=== PATIENT | male | born 1965 | race African-American/Black ===

== ENCOUNTER 2020-03-15 14:17 | Inpatient (IN) | payer OTHER ==
[2020-03-15 14:24] VITALS: BMI 30.7
[2020-03-15] MEDS ORDERED: LACTATED RINGERS SOLUTION 1000 ML INFUS.BAG IV ONE (15:16)
[2020-03-15 15:47] LABS: BASO % 1.4 % (0-2.0); EOS % 1.9 % (0-4.5); HEMOGLOBIN 14.5 GM/dL (11.7-16.9); MCH 29.8 pg (25.7-33.7); MCHC 33.8 g/dl (32.0-35.9); MEAN CELL VOLUME 88.4 fl (80-96); MEAN PLT VOLUME 8.3 fl (7.5-11.1); NEUT % 50.7 % (42.8-82.8); PLATELET COUNT 234 K/MM3 (134-434); RBC 4.86 M/mm3 (4.00-5.60); RDW 13.8 % (11.9-15.9); WHITE BLOOD COUNT 7.4 K/mm3 (4.0-10.0)
[2020-03-15 16:28] LABS: CHLORIDE 109 mmol/L (98-107); POTASSIUM 4.4 mmol/L (3.5-5.1); SODIUM 142 mmol/L (136-145)
[2020-03-15 16:30] LABS: ALBUMIN 3.7 g/dl (3.4-5.0); ANION GAP 5 MMOL/L (8-16); BLOOD UREA NITROGEN 17.6 mg/dL (7-18); CALCIUM 9.2 mg/dL (8.5-10.1); CO2 28 mmol/L (21-32); MAGNESIUM 2.4 mg/dL (1.8-2.4)
[2020-03-15 16:31] LABS: GLUCOSE,RANDOM 233 mg/dL (74-106)
[2020-03-15 16:33] LABS: SGPT/ALT 22 U/L (13-61)
[2020-03-15 16:34] LABS: CREATININE 1.3 mg/dL (0.55-1.3); SGOT/AST 13 U/L (15-37)
[2020-03-15 16:35] LABS: BILIRUBIN,TOTAL 0.4 mg/dL (0.2-1); TOT PROT 7.2 g/dl (6.4-8.2)
[2020-03-15 16:36] LABS: ALK PHOS 73 U/L (45-117)
[2020-03-15 19:09] LABS: EPI CELLS 4 /uL (0-25.1); HYALINE CASTS 1 /uL (0-3.1); URINE APPEARANCE CLEAR; URINE BACTERIA 77 /uL (0-1359); URINE BILIRUBIN NEGATIVE (NEGATIVE); URINE COLOR YELLOW; URINE GLUCOSE (UA) 3+ (NEGATIVE); URINE KETONE TRACE (NEGATIVE); URINE LEUK ESTERASE NEGATIVE (NEGATIVE); URINE NITRITE NEGATIVE (NEGATIVE); URINE PROTEIN 2+ (NEGATIVE); URINE RBC 4 /uL (0-23.9); URINE WBC 6 /uL (0-25.8)
[2020-03-16 07:04] LABS: BASO % 0.4 % (0-2.0); EOS % 2.2 % (0-4.5); HEMATOCRIT 39.1 % (35.4-49); HEMOGLOBIN 13.4 GM/dL (11.7-16.9); LYMPH % 47.8 % (8-40); MCH 29.6 pg (25.7-33.7); MCHC 34.3 g/dl (32.0-35.9); MEAN CELL VOLUME 86.2 fl (80-96); MEAN PLT VOLUME 8.7 fl (7.5-11.1); MONO % 6.1 % (3.8-10.2); NEUT % 43.5 % (42.8-82.8); PLATELET COUNT 229 K/MM3 (134-434); RBC 4.53 M/mm3 (4.00-5.60); RDW 13.7 % (11.9-15.9); WHITE BLOOD COUNT 6.9 K/mm3 (4.0-10.0)
[2020-03-16] MEDS: INSULIN SLIDING SCALE (NOVOLOG) 1 VIAL SQ SCH ×5 (07:31→21:23)
[2020-03-16 07:43] LABS: POTASSIUM 3.9 mmol/L (3.5-5.1); SODIUM 143 mmol/L (136-145)
[2020-03-16 07:44] LABS: CALCIUM 8.8 mg/dL (8.5-10.1); CO2 28 mmol/L (21-32)
[2020-03-16 07:45] LABS: ALBUMIN 3.3 g/dl (3.4-5.0); MAGNESIUM 2.2 mg/dL (1.8-2.4)
[2020-03-16 07:46] LABS: BLOOD UREA NITROGEN 16.1 mg/dL (7-18); GLUCOSE,RANDOM 107 mg/dL (74-106)
[2020-03-16 07:49] LABS: SGOT/AST 12 U/L (15-37); SGPT/ALT 18 U/L (13-61)
[2020-03-16 07:50] LABS: BILIRUBIN,TOTAL 0.8 mg/dL (0.2-1); TOT PROT 6.5 g/dl (6.4-8.2)
[2020-03-16 07:52] LABS: ALK PHOS 59 U/L (45-117)
[2020-03-16 07:55] LABS: ANION GAP 4 MMOL/L (8-16); CHLORIDE 111 mmol/L (98-107)
[2020-03-16] MEDS ORDERED: TAMSULOSIN HCL 0.4 MG CAP PO SCH (08:30)
[2020-03-16] MEDS ORDERED: TAMSULOSIN HCL 0.4 MG CAP ONE (08:56)
[2020-03-16] MEDS ORDERED: PANTOPRAZOLE SODIUM 40 MG VIAL IVPUSH SCH (10:00)
[2020-03-16] MEDS ORDERED: LORATADINE 10 MG TABLET PO SCH (13:30)
[2020-03-16] MEDS ORDERED: PANTOPRAZOLE 40 MG TABLET PO SCH (13:45)
[2020-03-16 15:04] LABS: CHOLESTEROL 157 mg/dL (50-200)
[2020-03-16 15:05] LABS: LDL CHOLESTEROL (ONLY SJRH) 99 mg/dL (5-100); TRIGLYCERIDES 57 mg/dL (0-150)
[2020-03-16 15:07] LABS: HDL CHOLESTEROL 51 mg/dL (40-60)
[2020-03-16] MEDS: ASPIRIN 81 MG CHEWABLE TABLETS PO SCH (17:42)
[2020-03-16 18:11] LABS: CHOLESTEROL 154 mg/dL (50-200); TRIGLYCERIDES 92 mg/dL (0-150)
[2020-03-16 18:12] LABS: LDL CHOLESTEROL (ONLY SJRH) 99 mg/dL (5-100)
[2020-03-16 18:14] LABS: HDL CHOLESTEROL 51 mg/dL (40-60)
[2020-03-16] MEDS ORDERED: INSULIN SLIDING SCALE (NOVOLOG) 1 VIAL SQ SCH (22:00)
[2020-03-16] MEDS ORDERED: ATORVASTATIN CA 10 MG TABLET (FP) PO SCH (22:00)
[2020-03-17] MEDS: INSULIN SLIDING SCALE (NOVOLOG) 1 VIAL SQ SCH ×2 (06:20→11:07)
[2020-03-17] MEDS ORDERED: metFORMIN HCL 500 MG TABLET (FP) PO SCH (07:00)
[2020-03-17] MEDS ORDERED: TAMSULOSIN HCL 0.4 MG CAP PO SCH (08:30)
[2020-03-17] MEDS: ASPIRIN 81 MG CHEWABLE TABLETS PO SCH (09:18)
[2020-03-17] MEDS ORDERED: PANTOPRAZOLE 40 MG TABLET PO SCH (10:00)
[2020-03-17] MEDS ORDERED: LORATADINE 10 MG TABLET PO SCH (10:00)
[2020-03-17 15:10] VITALS: BP 137/84; PULSE 74; TEMP 97.9
[2020-03-17] MEDS ORDERED: ATORVASTATIN CA 20 MG TABLET (FP) PO SCH (22:00)
== END 2020-03-17 18:05 | disposition home or self-care (01) | DRG 66 ==
LOC: JER 14:17 → JERBED 19:33 → J6WEST-2 03-16 13:07 → J4S 03-16 16:53 → OBSVTOIN 03-17 07:33
PROVIDERS: ADMIT Internal Medicine; ATTEND Family Medicine
DX: I63.9 Cerebral infarction, unspecified (principal); R27.0 Ataxia, unspecified; N40.0 Benign prostatic hyperplasia without lower urinary tract symptoms; I10 Essential (primary) hypertension; R47.81 Slurred speech; E11.9 Type 2 diabetes mellitus without complications; R26.81 Unsteadiness on feet; G56.03 Carpal tunnel syndrome, bilateral upper limbs; E11.65 Type 2 diabetes mellitus with hyperglycemia
CPT/HCPCS: 36415; 70450-TC; 70551-TC; 71046-TC-FY; 80053; 80061; 80307; 81003; 82550; 82553; 82962; 83036; 83721; 83735; 84484; 85025; 87086; 93005; 93010; 93880-TC; 97116-GP; 97161-GP; 99285-25; C9803; G0378; U0003

== ENCOUNTER 2020-07-17 11:53 | Observation (INO) | payer OTHER ==
[2020-07-17 13:23] VITALS: BMI 29.2
[2020-07-17 15:00] LABS: BASO % 0.8 % (0-2.0); EOS % 1.7 % (0-4.5); HEMATOCRIT 41.7 % (35.4-49); HEMOGLOBIN 14.4 GM/dL (11.7-16.9); LYMPH % 44.8 % (8-40); MCH 29.7 pg (25.7-33.7); MCHC 34.5 g/dl (32.0-35.9); MEAN CELL VOLUME 86.1 fl (80-96); MEAN PLT VOLUME 9.2 fl (7.5-11.1); MONO % 5.9 % (3.8-10.2); NEUT % 46.8 % (42.8-82.8); PLATELET COUNT 225 K/MM3 (134-434); RBC 4.84 M/mm3 (4.00-5.60); RDW 13.8 % (11.9-15.9); WHITE BLOOD COUNT 8.4 K/mm3 (4.0-10.0)
[2020-07-17 15:05] LABS: VENOUS BASE EXCESS 0.6 mmol/L (-2-2); VENOUS O2 SATURATION 50.6 % (70-80); VENOUS PCO2 58.5 mmHg (38-52); VENOUS PH 7.303 (7.310-7.410)
[2020-07-17 15:07] LABS: INR 1.08 (0.83-1.09); PROTHROMBIN TIME (PATIENT) 13.2 SEC (9.7-13.0)
[2020-07-17 15:10] LABS: ACTIVATED PTT 33.9 SECONDS (25.2-36.5)
[2020-07-17 15:25] LABS: CHLORIDE 107 mmol/L (98-107); POTASSIUM 4.3 mmol/L (3.5-5.1); SODIUM 139 mmol/L (136-145)
[2020-07-17 15:27] LABS: CALCIUM 9.1 mg/dL (8.5-10.1)
[2020-07-17 15:28] LABS: ALBUMIN 3.4 g/dl (3.4-5.0); ANION GAP 5 MMOL/L (8-16); BLOOD UREA NITROGEN 13.5 mg/dL (7-18); CO2 27 mmol/L (21-32); GLUCOSE,RANDOM 143 mg/dL (74-106)
[2020-07-17 15:30] LABS: BILIRUBIN,DIRECT 0.1 mg/dL (0.0-0.2)
[2020-07-17 15:31] LABS: CREATININE 1.1 mg/dL (0.55-1.3); SGOT/AST 7 U/L (15-37); SGPT/ALT 13 U/L (13-61)
[2020-07-17 15:32] LABS: BILIRUBIN,TOTAL 0.4 mg/dL (0.2-1)
[2020-07-17 15:34] LABS: ALK PHOS 61 U/L (45-117); LDH 211 U/L (87-246)
[2020-07-17] MEDS ORDERED: TAMSULOSIN HCL 0.4 MG CAP PO ONE (16:49)
[2020-07-17] MEDS ORDERED: ACETAMINOPHEN 325 MG TABLET (FP) PO PRN (16:49)
[2020-07-17] MEDS ORDERED: TAMSULOSIN HCL 0.4 MG CAP ONE (16:52)
[2020-07-17 18:42] LABS: EPI CELLS 3 /uL (0-25.1); HYALINE CASTS 0 /uL (0-3.1); URINE APPEARANCE CLEAR; URINE BACTERIA 100 /uL (0-1359); URINE BILIRUBIN NEGATIVE (NEGATIVE); URINE COLOR YELLOW; URINE GLUCOSE (UA) NEGATIVE (NEGATIVE); URINE KETONE NEGATIVE (NEGATIVE); URINE LEUK ESTERASE NEGATIVE (NEGATIVE); URINE NITRITE NEGATIVE (NEGATIVE); URINE PROTEIN 2+ (NEGATIVE); URINE RBC 11 /uL (0-23.9); URINE WBC 11 /uL (0-25.8)
[2020-07-17 23:17] LABS: ALBUMIN 3.2 g/dl (3.4-5.0); BLOOD UREA NITROGEN 14.5 mg/dL (7-18)
[2020-07-17] MEDS: INSULIN SLIDING SCALE (NOVOLOG) 1 VIAL SQ SCH (23:20)
[2020-07-17 23:21] LABS: CREATININE 1.2 mg/dL (0.55-1.3)
[2020-07-17] MEDS: INSULIN (LEVEMIR) 100 UNITS/ML UNITS SQ SCH (23:21)
[2020-07-17] MEDS: HEPARIN NA (PORCINE) 5,000 UNITS/ML 1ML VIAL SQ SCH (23:21)
[2020-07-17 23:22] LABS: BILIRUBIN,TOTAL 0.4 mg/dL (0.2-1); TOT PROT 6.2 g/dl (6.4-8.2)
[2020-07-17] MEDS: ATORVASTATIN CA 20 MG TABLET (FP) PO SCH (23:22)
[2020-07-18] MEDS: INSULIN SLIDING SCALE (NOVOLOG) 1 VIAL SQ SCH ×4 (06:21→21:25)
[2020-07-18 07:53] LABS: HEMATOCRIT 39.6 % (35.4-49); HEMOGLOBIN 13.6 GM/dL (11.7-16.9); MCH 29.6 pg (25.7-33.7); MCHC 34.4 g/dl (32.0-35.9); MEAN CELL VOLUME 86.1 fl (80-96); MEAN PLT VOLUME 8.7 fl (7.5-11.1); PLATELET COUNT 229 K/MM3 (134-434); RBC 4.61 M/mm3 (4.00-5.60); RDW 13.7 % (11.9-15.9); WHITE BLOOD COUNT 8.3 K/mm3 (4.0-10.0)
[2020-07-18] MEDS: PANTOPRAZOLE 40 MG TABLET PO SCH (09:06)
[2020-07-18] MEDS: ASPIRIN COATED 81 MG TABLET.EC PO SCH (09:07)
[2020-07-18] MEDS: HEPARIN NA (PORCINE) 5,000 UNITS/ML 1ML VIAL SQ SCH ×2 (09:07→21:23)
[2020-07-18] MEDS: INSULIN (LEVEMIR) 100 UNITS/ML UNITS SQ SCH (21:26)
[2020-07-18] MEDS: ATORVASTATIN CA 20 MG TABLET (FP) PO SCH (21:28)
[2020-07-19] MEDS: INSULIN SLIDING SCALE (NOVOLOG) 1 VIAL SQ SCH ×4 (06:00→21:52)
[2020-07-19] MEDS ORDERED: INSULIN (LEVEMIR) 100 UNITS/ML UNITS SQ SCH (08:08)
[2020-07-19] MEDS ORDERED: FOLIC ACID INJECTION - 1 MG, THIAMINE HCL 100 MG, MULTIVIT INJECTION ADULT 10 ML in SOD... IVPB ONE (09:00)
[2020-07-19] MEDS: HEPARIN NA (PORCINE) 5,000 UNITS/ML 1ML VIAL SQ SCH ×2 (10:37→21:52)
[2020-07-19] MEDS: ASPIRIN COATED 81 MG TABLET.EC PO SCH (10:37)
[2020-07-19] MEDS: PANTOPRAZOLE 40 MG TABLET PO SCH (12:22)
[2020-07-19] MEDS ORDERED: INSULIN (LEVEMIR) 100 UNITS/ML UNITS SQ ONE (21:50)
[2020-07-19] MEDS ORDERED: ATORVASTATIN CA 40 MG TABLET (FP) PO SCH (22:00)
[2020-07-20 05:26] VITALS: TEMP 98.2
[2020-07-20] MEDS: INSULIN SLIDING SCALE (NOVOLOG) 1 VIAL SQ SCH ×2 (06:09→10:52)
[2020-07-20 08:43] LABS: CHOLESTEROL 144 mg/dL (50-200); TRIGLYCERIDES 111 mg/dL (0-150)
[2020-07-20 08:45] LABS: LDL CHOLESTEROL (ONLY SJRH) 84 mg/dL (5-100)
[2020-07-20 08:46] LABS: HDL CHOLESTEROL 43 mg/dL (40-60)
[2020-07-20] MEDS: ASPIRIN COATED 81 MG TABLET.EC PO SCH (10:41)
[2020-07-20] MEDS: PANTOPRAZOLE 40 MG TABLET PO SCH (10:41)
[2020-07-20] MEDS: HEPARIN NA (PORCINE) 5,000 UNITS/ML 1ML VIAL SQ SCH (10:41)
[2020-07-20 15:17] VITALS: BP 155/91; PULSE 79
== END 2020-07-20 15:49 | disposition home health service (06) ==
LOC: JER 11:53 → INTOOBSV 17:22 → JERBED 17:22 → J8W 22:17
PROVIDERS: ADMIT Family Medicine; ATTEND Family Medicine
PROC: 3E033GC Introduction of Other Therapeutic Substance into Peripheral Vein, Percutaneous Approach (ICD-10-PCS; principal; 2020-07-17)
PROC: 3E013VG Introduction of Insulin into Subcutaneous Tissue, Percutaneous Approach (ICD-10-PCS; 2020-07-17)
DX: I63.9 Cerebral infarction, unspecified (principal); I10 Essential (primary) hypertension; R27.0 Ataxia, unspecified; F41.8 Other specified anxiety disorders; E11.9 Type 2 diabetes mellitus without complications; F32.9 Major depressive disorder, single episode, unspecified; M54.5 Low back pain; G89.29 Other chronic pain; E78.5 Hyperlipidemia, unspecified; M62.81 Muscle weakness (generalized); R91.8 Other nonspecific abnormal finding of lung field; R06.02 Shortness of breath; R41.82 Altered mental status, unspecified; N40.0 Benign prostatic hyperplasia without lower urinary tract symptoms; Z86.73 Personal history of transient ischemic attack (TIA), and cerebral infarction without residual deficits; Z91.14 Patient's other noncompliance with medication regimen; Z79.4 Long term (current) use of insulin; G95.9 Disease of spinal cord, unspecified
CPT/HCPCS: 36415; 70450-TC; 70551-TC; 71045-TC-FY; 71250-TC; 72141-TC; 80053; 80061; 81003; 82140; 82248; 82550; 82728; 82803; 82962; 83036; 83605; 83615; 83655; 83721; 83825; 84484; 85025; 85027; 85379; 85610; 85730; 86140; 87040; 87086; 87804; 93005; 93010; 93306-TC; 97116-GP; 97161-GP; 99285-25; C9803; G0378; J1644; U0003

== ENCOUNTER 2020-07-23 22:39 | Inpatient (IN) | payer OTHER ==
[2020-07-23] MEDS ORDERED: MECLIZINE HCL 25 MG TABLET (FP) PO ONE (23:57)
[2020-07-24] MEDS ORDERED: MECLIZINE HCL 25 MG TABLET (FP) ONE (00:04)
[2020-07-24 00:27] LABS: BASO % 1.3 % (0-2.0); EOS % 1.8 % (0-4.5); HEMATOCRIT 37.7 % (35.4-49); HEMOGLOBIN 12.9 GM/dL (11.7-16.9); LYMPH % 38.3 % (8-40); MCH 29.7 pg (25.7-33.7); MCHC 34.3 g/dl (32.0-35.9); MEAN CELL VOLUME 86.6 fl (80-96); MEAN PLT VOLUME 8.9 fl (7.5-11.1); MONO % 6.8 % (3.8-10.2); NEUT % 51.8 % (42.8-82.8); PLATELET COUNT 187 K/MM3 (134-434); RBC 4.36 M/mm3 (4.00-5.60); RDW 14.1 % (11.9-15.9); WHITE BLOOD COUNT 8.7 K/mm3 (4.0-10.0)
[2020-07-24 00:50] LABS: POTASSIUM 3.9 mmol/L (3.5-5.1)
[2020-07-24 00:53] LABS: ALBUMIN 3.2 g/dl (3.4-5.0); BLOOD UREA NITROGEN 18.5 mg/dL (7-18); CALCIUM 8.6 mg/dL (8.5-10.1)
[2020-07-24 00:56] LABS: CREATININE 1.2 mg/dL (0.55-1.3)
[2020-07-24 00:58] LABS: BILIRUBIN,TOTAL 0.5 mg/dL (0.2-1); TOT PROT 6.3 g/dl (6.4-8.2)
[2020-07-24] MEDS ORDERED: MECLIZINE HCL 25 MG TABLET (FP) PO PRN (02:58)
[2020-07-24] MEDS: INSULIN SLIDING SCALE (NOVOLOG) 1 VIAL SQ SCH ×4 (06:03→21:00)
[2020-07-24 06:39] VITALS: BMI 33.2
[2020-07-24 07:27] LABS: HEMATOCRIT 37.6 % (35.4-49); HEMOGLOBIN 13.1 GM/dL (11.7-16.9); MCHC 34.9 g/dl (32.0-35.9); MEAN CELL VOLUME 86.1 fl (80-96); MEAN PLT VOLUME 8.4 fl (7.5-11.1); PLATELET COUNT 222 K/MM3 (134-434); RBC 4.37 M/mm3 (4.00-5.60)
[2020-07-24 07:50] LABS: POTASSIUM 3.8 mmol/L (3.5-5.1)
[2020-07-24 07:56] LABS: BLOOD UREA NITROGEN 19.7 mg/dL (7-18)
[2020-07-24 07:59] LABS: CALCIUM 8.7 mg/dL (8.5-10.1); CREATININE 1.2 mg/dL (0.55-1.3)
[2020-07-24] MEDS: CLOPIDOGREL BISULFATE 75 MG TABLET (FP) PO SCH (10:30)
[2020-07-24] MEDS: PANTOPRAZOLE 40 MG TABLET PO SCH (10:30)
[2020-07-24] MEDS: TAMSULOSIN HCL 0.4 MG CAP PO SCH (10:30)
[2020-07-24] MEDS: ASPIRIN 81 MG CHEWABLE TABLETS PO SCH (10:31)
[2020-07-24] MEDS: ATORVASTATIN CA 40 MG TABLET (FP) PO SCH (21:00)
[2020-07-25] MEDS: INSULIN SLIDING SCALE (NOVOLOG) 1 VIAL SQ SCH ×4 (06:15→21:25)
[2020-07-25] MEDS: PANTOPRAZOLE 40 MG TABLET PO SCH (10:13)
[2020-07-25] MEDS: TAMSULOSIN HCL 0.4 MG CAP PO SCH (10:13)
[2020-07-25] MEDS: CLOPIDOGREL BISULFATE 75 MG TABLET (FP) PO SCH (10:13)
[2020-07-25] MEDS: ASPIRIN 81 MG CHEWABLE TABLETS PO SCH (10:13)
[2020-07-25] MEDS: ATORVASTATIN CA 40 MG TABLET (FP) PO SCH (21:25)
[2020-07-25] MEDS ORDERED: INSULIN (NOVOLOG) ASPART 100 UNITS/ML 10ML VIAL ONE (21:29)
[2020-07-26] MEDS: INSULIN SLIDING SCALE (NOVOLOG) 1 VIAL SQ SCH ×2 (06:17→11:33)
[2020-07-26] MEDS: CLOPIDOGREL BISULFATE 75 MG TABLET (FP) PO SCH (09:56)
[2020-07-26] MEDS: ASPIRIN 81 MG CHEWABLE TABLETS PO SCH (09:56)
[2020-07-26] MEDS: PANTOPRAZOLE 40 MG TABLET PO SCH (09:56)
[2020-07-26] MEDS: TAMSULOSIN HCL 0.4 MG CAP PO SCH (09:56)
[2020-07-26 11:04] VITALS: BP 141/85; PULSE 72; TEMP 97.8
== END 2020-07-26 13:50 | DRG 65 ==
LOC: JER 22:39 → JERBED 07-24 02:14 → J4W 07-24 05:50
PROVIDERS: ADMIT Internal Medicine; ATTEND Family Medicine
DX: I63.9 Cerebral infarction, unspecified (principal); G95.89 Other specified diseases of spinal cord; N40.0 Benign prostatic hyperplasia without lower urinary tract symptoms; R42 Dizziness and giddiness; E11.9 Type 2 diabetes mellitus without complications; Z86.73 Personal history of transient ischemic attack (TIA), and cerebral infarction without residual deficits; E78.5 Hyperlipidemia, unspecified; R47.81 Slurred speech; Z79.4 Long term (current) use of insulin
CPT/HCPCS: 36415; 70450-TC; 70544-TC; 70551-TC; 74230-TC-FY; 80048; 80053; 82962; 83036; 84443; 85025; 85027; 92611-GN; 93005; 93010; 97116-GP; 97162-GP; 99285-25; C9803; U0003

== ENCOUNTER 2020-09-06 14:04 | Inpatient (IN) | payer OTHER ==
[2020-09-06 15:46] LABS: BASO % 0.6 % (0-2.0); EOS % 2.2 % (0-4.5); HEMATOCRIT 38.9 % (35.4-49); HEMOGLOBIN 13.4 GM/dL (11.7-16.9); INR 1.2 (0.83-1.09); LYMPH % 28.7 % (8-40); MCH 29.9 pg (25.7-33.7); MCHC 34.4 g/dl (32.0-35.9); MEAN CELL VOLUME 87.2 fl (80-96); MEAN PLT VOLUME 8.2 fl (7.5-11.1); MONO % 5.9 % (3.8-10.2); NEUT % 62.6 % (42.8-82.8); PLATELET COUNT 223 K/MM3 (134-434); PROTHROMBIN TIME (PATIENT) 14.4 SEC (9.7-13.0); RBC 4.46 M/mm3 (4.00-5.60); RDW 14.6 % (11.9-15.9); WHITE BLOOD COUNT 6.6 K/mm3 (4.0-10.0)
[2020-09-06] MEDS ORDERED: ASPIRIN 81 MG CHEWABLE TABLETS PO ONE (15:47)
[2020-09-06 15:49] LABS: ACTIVATED PTT 34.7 SECONDS (25.2-36.5)
[2020-09-06] MEDS ORDERED: ASPIRIN 81 MG CHEWABLE TABLETS ONE (15:57)
[2020-09-06 16:00] LABS: CHLORIDE 108 mmol/L (98-107); SODIUM 139 mmol/L (136-145)
[2020-09-06 16:01] LABS: MAGNESIUM 2.2 mg/dL (1.8-2.4)
[2020-09-06 16:04] LABS: ANION GAP 6 MMOL/L (8-16); BLOOD UREA NITROGEN 16.6 mg/dL (7-18); CALCIUM 8.3 mg/dL (8.5-10.1); CO2 25 mmol/L (21-32); GLUCOSE,RANDOM 126 mg/dL (74-106); LIPASE 251 U/L (73-393)
[2020-09-06 16:05] LABS: ALBUMIN 3.4 g/dl (3.4-5.0)
[2020-09-06 16:07] LABS: CREATININE 1.1 mg/dL (0.55-1.3); SGOT/AST 15 U/L (15-37); SGPT/ALT 31 U/L (13-61)
[2020-09-06 16:09] LABS: BILIRUBIN,TOTAL 0.4 mg/dL (0.2-1); TOT PROT 6.4 g/dl (6.4-8.2)
[2020-09-06 16:10] LABS: ALK PHOS 66 U/L (45-117)
[2020-09-06] MEDS ORDERED: D5-1/2NS+20 MEQ KCL - 20 MEQ/1,000 ML INFUS.BAG IV SCH (22:30)
[2020-09-07 00:54] VITALS: BMI 32.2
[2020-09-07 08:14] LABS: BASO % 0.3 % (0-2.0); EOS % 0.6 % (0-4.5); HEMATOCRIT 37.2 % (35.4-49); LYMPH % 14.1 % (8-40); MCH 30.1 pg (25.7-33.7); MEAN CELL VOLUME 86.2 fl (80-96); MEAN PLT VOLUME 8.7 fl (7.5-11.1); MONO % 5.2 % (3.8-10.2); NEUT % 79.8 % (42.8-82.8); PLATELET COUNT 227 K/MM3 (134-434); RBC 4.32 M/mm3 (4.00-5.60); RDW 14.3 % (11.9-15.9); WHITE BLOOD COUNT 15.8 K/mm3 (4.0-10.0)
[2020-09-07 08:28] LABS: CHLORIDE 107 mmol/L (98-107); SODIUM 141 mmol/L (136-145)
[2020-09-07] MEDS ORDERED: TAMSULOSIN HCL 0.4 MG CAP PO SCH (08:30)
[2020-09-07 08:31] VITALS: BP 104/82; PULSE 88; TEMP 98.4
[2020-09-07 08:35] LABS: ALBUMIN 3.1 g/dl (3.4-5.0); ANION GAP 7 MMOL/L (8-16); BLOOD UREA NITROGEN 13.6 mg/dL (7-18); CALCIUM 8.4 mg/dL (8.5-10.1); CO2 26 mmol/L (21-32)
[2020-09-07 08:36] LABS: GLUCOSE,RANDOM 119 mg/dL (74-106)
[2020-09-07 08:37] LABS: SGPT/ALT 23 U/L (13-61)
[2020-09-07 08:38] LABS: CHOLESTEROL 111 mg/dL (50-200); SGOT/AST 12 U/L (15-37); TRIGLYCERIDES 46 mg/dL (0-150)
[2020-09-07 08:39] LABS: ALK PHOS 66 U/L (45-117); BILIRUBIN,TOTAL 0.7 mg/dL (0.2-1); CREATININE 1.1 mg/dL (0.55-1.3); HDL CHOLESTEROL 48 mg/dL (40-60); LDL CHOLESTEROL (ONLY SJRH) 51 mg/dL (5-100); TOT PROT 6.1 g/dl (6.4-8.2)
[2020-09-07] MEDS ORDERED: PANTOPRAZOLE 40 MG TABLET PO SCH (10:00)
[2020-09-07] MEDS ORDERED: HEPARIN NA (PORCINE) 5,000 UNITS/ML 1ML VIAL SQ SCH (10:00)
[2020-09-07] MEDS ORDERED: ASPIRIN 81 MG CHEWABLE TABLETS PO SCH (10:00)
[2020-09-07] MEDS ORDERED: FLUoxetine HCL 20 MG CAPSULE PO SCH (10:00)
[2020-09-07] MEDS ORDERED: CLOPIDOGREL BISULFATE 75 MG TABLET (FP) PO SCH (10:00)
[2020-09-07] MEDS ORDERED: INSULIN SLIDING SCALE (NOVOLOG) 1 VIAL SQ SCH (16:30)
[2020-09-07] MEDS ORDERED: ATORVASTATIN CA 20 MG TABLET (FP) PO SCH (22:00)
== END 2020-09-07 16:46 | disposition home health service (06) | DRG 392 ==
LOC: JER 14:04 → JERBED 15:43 → J4W 19:59
PROVIDERS: ADMIT Family Medicine; ATTEND Family Medicine
DX: R11.2 Nausea with vomiting, unspecified (principal); E11.9 Type 2 diabetes mellitus without complications; I10 Essential (primary) hypertension; E78.5 Hyperlipidemia, unspecified; N40.0 Benign prostatic hyperplasia without lower urinary tract symptoms; R53.1 Weakness; R47.1 Dysarthria and anarthria; R47.81 Slurred speech
CPT/HCPCS: 36415; 70450-TC; 70496-TC; 70551-TC; 71045-TC-FY; 74230-TC-FY; 80053; 80061; 82550; 82553; 82962; 83036; 83690; 83721; 83735; 84443; 84484; 85025; 85610; 85730; 86850; 86900; 86901; 92611-GN; 93005; 93010; 97116-GP; 97161-GP; 99285-25; C9803; J1644; Q9967; U0003; U0005

== ENCOUNTER 2020-12-17 17:23 | Emergency (ER) | payer OTHER ==
[2020-12-17 17:36] VITALS: TEMP 98.3; BMI 30.7
[2020-12-17] MEDS ORDERED: ACETAMINOPHEN 325 MG TABLET (FP) PO ONE (18:42)
[2020-12-17] MEDS ORDERED: ACETAMINOPHEN 325 MG TABLET (FP) ONE (19:39)
[2020-12-17 19:49] VITALS: BP 145/76; PULSE 82
== END 2020-12-17 20:42 | disposition home or self-care (01) ==
LOC: JER 17:23
DX: S09.90XA Unspecified injury of head, initial encounter (principal); W01.0XXA Fall on same level from slipping, tripping and stumbling without subsequent striking against object, initial encounter; Y93.01 Activity, walking, marching and hiking
CPT/HCPCS: 70450-TC; 72125-TC; 99284-25

== ENCOUNTER 2021-07-17 11:44 | Inpatient (IN) | payer OTHER ==
[2021-07-17] MEDS ORDERED: FUROSEMIDE 40 MG/4 ML INJECTABLE VIAL IVPUSH ONE (13:42)
[2021-07-17] MEDS ORDERED: ACETAMINOPHEN 325 MG TABLET (FP) PO PRN (13:56)
[2021-07-17] MEDS ORDERED: FUROSEMIDE 40 MG/4 ML INJECTABLE VIAL ONE (14:09)
[2021-07-17] MEDS ORDERED: GABAPENTIN 100 MG CAPSULE ONE (14:09)
[2021-07-17] MEDS: BACLOFEN 10 MG TABLET (FP) PO SCH ×2 (14:20→22:20)
[2021-07-17] MEDS: GABAPENTIN 300 MG CAPSULE PO SCH ×2 (14:20→22:20)
[2021-07-17 15:05] LABS: BASO % 0.6 % (0-2.0); EOS % 3.3 % (0-4.5); HEMATOCRIT 40.3 % (35.4-49); HEMOGLOBIN 13.2 GM/dL (11.7-16.9); LYMPH % 44.7 % (8-40); MCH 28.6 pg (25.7-33.7); MCHC 32.7 g/dl (32.0-35.9); MEAN CELL VOLUME 87.6 fl (80-96); MEAN PLT VOLUME 8.4 fl (7.5-11.1); MONO % 6.5 % (3.8-10.2); NEUT % 44.9 % (42.8-82.8); PLATELET COUNT 229 10^3/uL (134-434); WHITE BLOOD COUNT 6.2 K/mm3 (4.0-10.0)
[2021-07-17 15:29] LABS: CALCIUM 9.3 mg/dL (8.5-10.1)
[2021-07-17 15:30] LABS: ALBUMIN 3.8 g/dl (3.4-5.0); BLOOD UREA NITROGEN 24.2 mg/dL (7-18)
[2021-07-17 15:33] LABS: CREATININE 1.4 mg/dL (0.55-1.3)
[2021-07-17 15:34] LABS: BILIRUBIN,TOTAL 0.6 mg/dL (0.2-1)
[2021-07-17 15:35] LABS: TOT PROT 6.9 g/dl (6.4-8.2)
[2021-07-17 15:38] LABS: N-TERMINAL BNP 66.2 pg/ml (5-125)
[2021-07-17] MEDS: INSULIN SLIDING SCALE (NOVOLOG) 1 VIAL SQ SCH ×2 (20:18→22:15)
[2021-07-17 20:35] LABS: URINE APPEARANCE CLEAR; URINE BILIRUBIN NEGATIVE (NEGATIVE); URINE COLOR YELLOW; URINE GLUCOSE (UA) NEGATIVE (NEGATIVE); URINE KETONE NEGATIVE (NEGATIVE); URINE LEUK ESTERASE NEGATIVE (NEGATIVE); URINE NITRITE NEGATIVE (NEGATIVE); URINE PROTEIN NEGATIVE (NEGATIVE); URINE UROBILINOGEN 0.2 mg/dL (0.2-1.0)
[2021-07-17] MEDS: ATORVASTATIN CA 40 MG TABLET (FP) PO SCH (22:20)
[2021-07-18] MEDS: GABAPENTIN 300 MG CAPSULE PO SCH ×3 (05:27→21:52)
[2021-07-18] MEDS: BACLOFEN 10 MG TABLET (FP) PO SCH ×3 (05:27→21:52)
[2021-07-18] MEDS: INSULIN SLIDING SCALE (NOVOLOG) 1 VIAL SQ SCH ×4 (06:18→21:52)
[2021-07-18] MEDS: TAMSULOSIN HCL 0.4 MG CAP PO SCH (08:20)
[2021-07-18 08:43] LABS: HEMATOCRIT 35.9 % (35.4-49); HEMOGLOBIN 12.6 GM/dL (11.7-16.9); MCH 29.9 pg (25.7-33.7); MCHC 35.2 g/dl (32.0-35.9); MEAN CELL VOLUME 84.9 fl (80-96); MEAN PLT VOLUME 7.7 fl (7.5-11.1); PLATELET COUNT 205 10^3/uL (134-434); RBC 4.23 M/mm3 (4.00-5.60); WHITE BLOOD COUNT 5.7 K/mm3 (4.0-10.0)
[2021-07-18] MEDS: FAMOTIDINE 20 MG TABLET PO SCH (09:15)
[2021-07-18] MEDS: FLUoxetine HCL 20 MG CAPSULE PO SCH (09:15)
[2021-07-18] MEDS: ASPIRIN COATED 81 MG TABLET.EC PO SCH (09:15)
[2021-07-18] MEDS: FUROSEMIDE 40 MG/4 ML INJECTABLE VIAL IVPUSH SCH (09:15)
[2021-07-18] MEDS: CLOPIDOGREL BISULFATE 75 MG TABLET (FP) PO SCH (09:15)
[2021-07-18 09:16] LABS: ALBUMIN 3.3 g/dl (3.4-5.0)
[2021-07-18 09:17] LABS: BLOOD UREA NITROGEN 24.5 mg/dL (7-18)
[2021-07-18 09:19] LABS: CREATININE 1.3 mg/dL (0.55-1.3); TOT PROT 6.4 g/dl (6.4-8.2)
[2021-07-18 09:20] LABS: BILIRUBIN,TOTAL 0.6 mg/dL (0.2-1)
[2021-07-18] MEDS ORDERED: metFORMIN HCL 500 MG TABLET (FP) PO SCH (16:30)
[2021-07-18] MEDS: ATORVASTATIN CA 40 MG TABLET (FP) PO SCH (21:52)
[2021-07-18] MEDS: INSULIN (LEVEMIR) 100 UNITS/ML UNITS SQ SCH (21:52)
[2021-07-19] MEDS: BACLOFEN 10 MG TABLET (FP) PO SCH ×3 (05:57→22:20)
[2021-07-19] MEDS: GABAPENTIN 300 MG CAPSULE PO SCH ×3 (05:57→22:20)
[2021-07-19] MEDS: INSULIN SLIDING SCALE (NOVOLOG) 1 VIAL SQ SCH ×4 (05:59→22:21)
[2021-07-19 07:40] LABS: HEMATOCRIT 36.2 % (35.4-49); HEMOGLOBIN 12.7 GM/dL (11.7-16.9); MCH 29.9 pg (25.7-33.7); MEAN CELL VOLUME 85.3 fl (80-96); MEAN PLT VOLUME 7.8 fl (7.5-11.1); PLATELET COUNT 207 10^3/uL (134-434); RBC 4.24 M/mm3 (4.00-5.60); RDW 13.6 % (11.9-15.9); WHITE BLOOD COUNT 6.6 K/mm3 (4.0-10.0)
[2021-07-19 07:42] VITALS: BMI 30.9
[2021-07-19 08:05] LABS: BLOOD UREA NITROGEN 26.6 mg/dL (7-18)
[2021-07-19 08:08] LABS: CREATININE 1.2 mg/dL (0.55-1.3)
[2021-07-19] MEDS: TAMSULOSIN HCL 0.4 MG CAP PO SCH (08:35)
[2021-07-19] MEDS: FAMOTIDINE 20 MG TABLET PO SCH (11:53)
[2021-07-19] MEDS: CLOPIDOGREL BISULFATE 75 MG TABLET (FP) PO SCH (11:54)
[2021-07-19] MEDS: ASPIRIN COATED 81 MG TABLET.EC PO SCH (11:54)
[2021-07-19] MEDS: FUROSEMIDE 40 MG/4 ML INJECTABLE VIAL IVPUSH SCH (11:55)
[2021-07-19] MEDS: FLUoxetine HCL 20 MG CAPSULE PO SCH (12:22)
[2021-07-19] MEDS: INSULIN (LEVEMIR) 100 UNITS/ML UNITS SQ SCH ×2 (12:22→22:20)
[2021-07-19] MEDS ORDERED: INSULIN (LEVEMIR) 100 UNITS/ML UNITS SQ SCH (16:07)
[2021-07-19] MEDS ORDERED: Insulin (LOG) Aspart 100 UNITS/ML VIAL SQ SCH (16:30)
[2021-07-19] MEDS: INSULIN (NOVOLOG) ASPART 100 UNITS/ML 10ML VIAL SQ SCH (16:30)
[2021-07-19] MEDS ORDERED: INSULIN (NOVOLOG) ASPART 100 UNITS/ML 10ML VIAL ONE (18:11)
[2021-07-19] MEDS: ATORVASTATIN CA 40 MG TABLET (FP) PO SCH (22:20)
[2021-07-20] MEDS: BACLOFEN 10 MG TABLET (FP) PO SCH (06:34)
[2021-07-20] MEDS: GABAPENTIN 300 MG CAPSULE PO SCH (06:34)
[2021-07-20] MEDS: INSULIN (LEVEMIR) 100 UNITS/ML UNITS SQ SCH (06:35)
[2021-07-20] MEDS: INSULIN (NOVOLOG) ASPART 100 UNITS/ML 10ML VIAL SQ SCH (06:35)
[2021-07-20] MEDS: INSULIN SLIDING SCALE (NOVOLOG) 1 VIAL SQ SCH ×2 (06:35→12:04)
[2021-07-20] MEDS ORDERED: INSULIN (NOVOLOG) ASPART 100 UNITS/ML 10ML VIAL SQ SCH (09:36)
[2021-07-20] MEDS ORDERED: INSULIN (LEVEMIR) 100 UNITS/ML UNITS SQ ONE (09:45)
[2021-07-20] MEDS: ASPIRIN COATED 81 MG TABLET.EC PO SCH (09:53)
[2021-07-20] MEDS: FUROSEMIDE 40 MG/4 ML INJECTABLE VIAL IVPUSH SCH (09:53)
[2021-07-20] MEDS: CLOPIDOGREL BISULFATE 75 MG TABLET (FP) PO SCH (09:53)
[2021-07-20] MEDS: FAMOTIDINE 20 MG TABLET PO SCH (09:54)
[2021-07-20] MEDS: FLUoxetine HCL 20 MG CAPSULE PO SCH (09:54)
[2021-07-20] MEDS: TAMSULOSIN HCL 0.4 MG CAP PO SCH (09:54)
[2021-07-20 11:23] VITALS: BP 144/82; PULSE 76; TEMP 983
[2021-07-21 06:08] LABS: SARS-CoV-2 NAA Not Detected (Not Detected)
== END 2021-07-20 14:16 | disposition home or self-care (01) | DRG 684 ==
LOC: JER 11:44 → INTOOBSV 13:37 → JERBED 13:37 → UNDOADMOB 13:37 → JERBED 21:35 → J8W 21:35 → UNDOADMOB 07-18 09:49 → JERBED 07-18 09:49 → J8W 07-18 09:49 → OBSVTOIN 07-20 12:37 → INTOOBSV 07-20 12:37 → J8W 07-20 12:37 → JERBED 07-20 12:37
PROVIDERS: ADMIT Family Medicine; ATTEND Internal Medicine
DX: N17.9 Acute kidney failure, unspecified (principal); I10 Essential (primary) hypertension; E87.70 Fluid overload, unspecified; E11.9 Type 2 diabetes mellitus without complications
CPT/HCPCS: 36415; 70450-TC; 71045-TC-FY; 76775-TC; 80048; 80053; 80061; 81003; 82570; 82962; 83036; 83880; 84156; 84439; 84443; 84484; 85025; 85027; 93005; 93010; 93970-TC; 97116-GP; 97161-GP; 99285-25; C9803; J0475; U0003; U0005

== ENCOUNTER 2022-05-02 10:41 | Inpatient (IN) | payer OTHER ==
[2022-05-02 11:02] VITALS: BMI 29.2
[2022-05-02] MEDS ORDERED: ASPIRIN 81 MG CHEWABLE TABLETS PO ONE (11:24)
[2022-05-02] MEDS ORDERED: FUROSEMIDE 40 MG/4 ML INJECTABLE VIAL IVPUSH ONE ×2 (11:24→11:37)
[2022-05-02] MEDS ORDERED: ASPIRIN 81 MG CHEWABLE TABLETS ONE (11:59)
[2022-05-02] MEDS ORDERED: FUROSEMIDE 40 MG/4 ML INJECTABLE VIAL ONE (11:59)
[2022-05-02 12:26] LABS: BASO % 0.5 % (0-2.0); EOS % 2.1 % (0-4.5); HEMATOCRIT 39.6 % (35.4-49); HEMOGLOBIN 13.1 GM/dL (11.7-16.9); LYMPH % 23.6 % (8-40); MCH 28.3 pg (25.7-33.7); MCHC 32.9 g/dl (32.0-35.9); MEAN PLT VOLUME 8.1 fl (7.5-11.1); MONO % 6.4 % (3.8-10.2); NEUT % 67.4 % (42.8-82.8); PLATELET COUNT 236 10^3/uL (134-434); RDW 14.1 % (11.9-15.9); WHITE BLOOD COUNT 8.5 K/mm3 (4.0-10.0)
[2022-05-02 12:32] LABS: INR 1.14 (0.83-1.09); PROTHROMBIN TIME (PATIENT) 13.1 SEC (9.7-13.0)
[2022-05-02 12:34] LABS: ACTIVATED PTT 34.4 SECONDS (25.2-36.5)
[2022-05-02 12:47] LABS: ALBUMIN 3.5 g/dl (3.4-5.0); MAGNESIUM 2.1 mg/dL (1.8-2.4)
[2022-05-02 12:49] LABS: BLOOD UREA NITROGEN 18.4 mg/dL (7-18)
[2022-05-02 12:50] LABS: CREATININE 1.3 mg/dL (0.55-1.3)
[2022-05-02 12:52] LABS: BILIRUBIN,TOTAL 0.6 mg/dL (0.2-1); TOT PROT 6.8 g/dl (6.4-8.2)
[2022-05-02 12:56] LABS: N-TERMINAL BNP 108.5 pg/ml (5-125)
[2022-05-02] MEDS ORDERED: ACETAMINOPHEN 1000 MG/100 ML BAG IVPB ONE (21:49)
[2022-05-02] MEDS ORDERED: LOPERAMIDE HCL 2 MG CAPSULE PO PRN (22:05)
[2022-05-02] MEDS ORDERED: ACETAMINOPHEN INJECTION 100 ML IVPB ONE (22:06)
[2022-05-03 00:27] LABS: EPI CELLS 4 /uL (0-25.1); HYALINE CASTS 1 /uL (0-3.1); URINE APPEARANCE CLEAR; URINE BACTERIA 8731 /uL (0-1359); URINE BILIRUBIN NEGATIVE (NEGATIVE); URINE COLOR YELLOW; URINE GLUCOSE (UA) TRACE (NEGATIVE); URINE KETONE TRACE (NEGATIVE); URINE LEUK ESTERASE NEGATIVE (NEGATIVE); URINE NITRITE NEGATIVE (NEGATIVE); URINE PROTEIN 2+ (NEGATIVE); URINE RBC 16 /uL (0-23.9); URINE UROBILINOGEN 0.2 mg/dL (0.2-1.0); URINE WBC 27 /uL (0-25.8)
[2022-05-03] MEDS ORDERED: PIPERACILLIN/TAZOB 3.375 GM 3.375 GM in DEXTROSE 5%-WATER - 50 ML IVPB ONE (00:30)
[2022-05-03] MEDS ORDERED: ACETAMINOPHEN 325 MG TABLET (FP) PO ONE (00:31)
[2022-05-03] MEDS ORDERED: IBUPROFEN 600 MG TABLET (FP) PO ONE ×2 (00:31→00:57)
[2022-05-03] MEDS ORDERED: DALBAVANCIN HCL 1,500 MG in DEXTROSE 5%-WATER - 500 ML IVPB ONE (00:31)
[2022-05-03] MEDS ORDERED: ACETAMINOPHEN 325 MG TABLET (FP) ONE (00:58)
[2022-05-03] MEDS ORDERED: PIPERACILLIN/TAZOB 3.375 GM 3.375 GM/50 ML BAG IVPB ONE ×2 (02:17→08:11)
[2022-05-03] MEDS ORDERED: PIPERACILLIN/TAZOB 3.375 GM 3.375 GM in DEXTROSE 5%-WATER - 50 ML IVPB SCH (09:00)
[2022-05-03] MEDS: ACETAMINOPHEN 1000 MG/100 ML BAG IVPB PRN (11:38)
[2022-05-03] MEDS: FUROSEMIDE 40 MG/4 ML INJECTABLE VIAL IVPUSH SCH (11:39)
[2022-05-03] MEDS ORDERED: ACETAMINOPHEN INJECTION 100 ML IVPB ONE (11:42)
[2022-05-03] MEDS ORDERED: FUROSEMIDE 40 MG/4 ML INJECTABLE VIAL ONE (11:42)
[2022-05-03] MEDS ORDERED: ALBUTEROL SO4 2.5/IPRATROPIUM 0.5 INH SOL 3 ML VIAL.NEB. NEB ONE (11:51)
[2022-05-03] MEDS ORDERED: REMDESIVIR 200 MG in SODIUM CHLORIDE 250 ML IVPB ONE (12:00)
[2022-05-03] MEDS ORDERED: ALBUTEROL SO4 0.083% IH SOL 2.5 MG/3 ML VIAL.NEB. NEB PRN (15:09)
[2022-05-03] MEDS ORDERED: ALBUTEROL SO4 HFA INHALER IH PRN (15:45)
[2022-05-03] MEDS: CEFTRIAXONE 1 GM in DEXTROSE 5%-WATER - 50 ML IVPB SCH (16:08)
[2022-05-03] MEDS ORDERED: CEFTRIAXONE 1 GM/50 ML BAG ONE (16:09)
[2022-05-03] MEDS: INSULIN SLIDING SCALE (NOVOLOG) 1 VIAL SQ SCH ×2 (16:29→21:46)
[2022-05-03] MEDS: INSULIN (LEVEMIR) 100 UNITS/ML UNITS SQ SCH (21:46)
[2022-05-04] MEDS: ACETAMINOPHEN 1000 MG/100 ML BAG IVPB PRN (00:56)
[2022-05-04] MEDS: INSULIN SLIDING SCALE (NOVOLOG) 1 VIAL SQ SCH ×4 (06:59→22:18)
[2022-05-04] MEDS: CEFTRIAXONE 1 GM in DEXTROSE 5%-WATER - 50 ML IVPB SCH (09:54)
[2022-05-04] MEDS: FUROSEMIDE 40 MG/4 ML INJECTABLE VIAL IVPUSH SCH ×2 (09:54→16:32)
[2022-05-04] MEDS: REMDESIVIR 100 MG in SODIUM CHLORIDE 250 ML IVPB SCH (11:59)
[2022-05-04] MEDS: INSULIN (LEVEMIR) 100 UNITS/ML UNITS SQ SCH (22:17)
[2022-05-05] MEDS: FUROSEMIDE 40 MG/4 ML INJECTABLE VIAL IVPUSH SCH ×2 (06:15→14:49)
[2022-05-05] MEDS: INSULIN SLIDING SCALE (NOVOLOG) 1 VIAL SQ SCH ×4 (06:15→21:02)
[2022-05-05 08:42] LABS: BASO % 0.8 % (0-2.0); HEMATOCRIT 35.7 % (35.4-49); HEMOGLOBIN 12.1 GM/dL (11.7-16.9); LYMPH % 39.7 % (8-40); MCH 28.8 pg (25.7-33.7); MCHC 33.7 g/dl (32.0-35.9); MEAN CELL VOLUME 85.4 fl (80-96); MEAN PLT VOLUME 8.4 fl (7.5-11.1); MONO % 10.1 % (3.8-10.2); NEUT % 47.4 % (42.8-82.8); PLATELET COUNT 203 10^3/uL (134-434); RBC 4.19 M/mm3 (4.00-5.60)
[2022-05-05 09:04] LABS: BLOOD UREA NITROGEN 19.2 mg/dL (7-18); CALCIUM 8.5 mg/dL (8.5-10.1)
[2022-05-05 09:09] LABS: BILIRUBIN,TOTAL 0.7 mg/dL (0.2-1); CREATININE 1.3 mg/dL (0.55-1.3); TOT PROT 6.2 g/dl (6.4-8.2)
[2022-05-05] MEDS: CEFTRIAXONE 1 GM in DEXTROSE 5%-WATER - 50 ML IVPB SCH (09:39)
[2022-05-05] MEDS: POTASSIUM CHLORIDE TABS 20 MEQ TABLET.ER (FP) PO SCH ×2 (11:48→21:02)
[2022-05-05] MEDS: REMDESIVIR 100 MG in SODIUM CHLORIDE 250 ML IVPB SCH (11:48)
[2022-05-05] MEDS: guaiFENesin/D-M SUGAR-FREE/ACLHOL-FREE 5 ML UNIT DOSE PO PRN (15:13)
[2022-05-05] MEDS: INSULIN (LEVEMIR) 100 UNITS/ML UNITS SQ SCH (21:02)
[2022-05-06] MEDS: FUROSEMIDE 40 MG/4 ML INJECTABLE VIAL IVPUSH SCH ×2 (06:16→14:38)
[2022-05-06] MEDS: INSULIN SLIDING SCALE (NOVOLOG) 1 VIAL SQ SCH ×4 (06:16→22:29)
[2022-05-06] MEDS: CEFTRIAXONE 1 GM in DEXTROSE 5%-WATER - 50 ML IVPB SCH (10:03)
[2022-05-06] MEDS: POTASSIUM CHLORIDE TABS 20 MEQ TABLET.ER (FP) PO SCH ×2 (10:04→22:19)
[2022-05-06 11:48] LABS: ALBUMIN 3.4 g/dl (3.4-5.0); CALCIUM 9.1 mg/dL (8.5-10.1); MAGNESIUM 2.2 mg/dL (1.8-2.4)
[2022-05-06 11:49] LABS: BLOOD UREA NITROGEN 23.3 mg/dL (7-18)
[2022-05-06 11:53] LABS: BILIRUBIN,TOTAL 0.8 mg/dL (0.2-1); CREATININE 1.3 mg/dL (0.55-1.3)
[2022-05-06 14:29] LABS: EPI CELLS 2 /uL (0-25.1); HYALINE CASTS 0 /uL (0-3.1); PH,URINE 5.5 (5.0-8.0); URINE APPEARANCE CLEAR; URINE BACTERIA 6 /uL (0-1359); URINE BILIRUBIN NEGATIVE (NEGATIVE); URINE COLOR YELLOW; URINE GLUCOSE (UA) 2+ (NEGATIVE); URINE KETONE NEGATIVE (NEGATIVE); URINE LEUK ESTERASE NEGATIVE (NEGATIVE); URINE NITRITE NEGATIVE (NEGATIVE); URINE PROTEIN 1+ (NEGATIVE); URINE RBC 7 /uL (0-23.9); URINE WBC 4 /uL (0-25.8)
[2022-05-06] MEDS: INSULIN (LEVEMIR) 100 UNITS/ML UNITS SQ SCH (22:28)
[2022-05-07] MEDS: FUROSEMIDE 40 MG/4 ML INJECTABLE VIAL IVPUSH SCH ×2 (06:26→14:05)
[2022-05-07] MEDS: INSULIN SLIDING SCALE (NOVOLOG) 1 VIAL SQ SCH ×4 (06:34→22:28)
[2022-05-07 09:26] LABS: CALCIUM 8.9 mg/dL (8.5-10.1)
[2022-05-07 09:27] LABS: ALBUMIN 3.2 g/dl (3.4-5.0); BLOOD UREA NITROGEN 21.4 mg/dL (7-18)
[2022-05-07 09:30] LABS: CREATININE 1.1 mg/dL (0.55-1.3)
[2022-05-07 09:31] LABS: TOT PROT 6.7 g/dl (6.4-8.2)
[2022-05-07 09:32] LABS: BILIRUBIN,TOTAL 0.6 mg/dL (0.2-1)
[2022-05-07] MEDS: CEFTRIAXONE 1 GM in DEXTROSE 5%-WATER - 50 ML IVPB SCH (09:40)
[2022-05-07] MEDS: POTASSIUM CHLORIDE TABS 20 MEQ TABLET.ER (FP) PO SCH ×2 (09:40→22:28)
[2022-05-07] MEDS ORDERED: BISACODYL 10 MG SUPP.RECT PR ONE (12:35)
[2022-05-07] MEDS ORDERED: POLYETHYLENE GLYCOL (HEALTHYLAX) 3350 17 GM PACKET PO SCH (16:45)
[2022-05-07] MEDS: INSULIN (LEVEMIR) 100 UNITS/ML UNITS SQ SCH (22:28)
[2022-05-08] MEDS: FUROSEMIDE 40 MG/4 ML INJECTABLE VIAL IVPUSH SCH ×2 (06:20→15:03)
[2022-05-08] MEDS: INSULIN SLIDING SCALE (NOVOLOG) 1 VIAL SQ SCH ×4 (06:21→22:45)
[2022-05-08] MEDS: CEFTRIAXONE 1 GM in DEXTROSE 5%-WATER - 50 ML IVPB SCH (09:56)
[2022-05-08] MEDS: POTASSIUM CHLORIDE TABS 20 MEQ TABLET.ER (FP) PO SCH ×2 (09:57→22:45)
[2022-05-08] MEDS: ENOXAPARIN NA (PORCINE) 40 MG/0.4 ML DISP.SYRIN SQ SCH (09:57)
[2022-05-08 10:50] VITALS: RESP 18
[2022-05-08] MEDS: INSULIN (LEVEMIR) 100 UNITS/ML UNITS SQ SCH (22:45)
[2022-05-08] MEDS: CEPHALEXIN MONOHYDRATE 500 MG CAPSULE (UD) PO SCH (22:45)
[2022-05-09 06:37] VITALS: TEMP 98.4
[2022-05-09] MEDS: FUROSEMIDE 40 MG/4 ML INJECTABLE VIAL IVPUSH SCH (07:02)
[2022-05-09] MEDS: INSULIN SLIDING SCALE (NOVOLOG) 1 VIAL SQ SCH ×2 (07:02→10:51)
[2022-05-09 07:21] LABS: BASO % 0.8 % (0-2.0); EOS % 4.1 % (0-4.5); HEMATOCRIT 34.4 % (35.4-49); LYMPH % 44.6 % (8-40); MCH 29.2 pg (25.7-33.7); MCHC 34.8 g/dl (32.0-35.9); MEAN CELL VOLUME 84.1 fl (80-96); MEAN PLT VOLUME 7.8 fl (7.5-11.1); MONO % 10.4 % (3.8-10.2); NEUT % 40.1 % (42.8-82.8); PLATELET COUNT 242 10^3/uL (134-434); RBC 4.09 M/mm3 (4.00-5.60); RDW 13.5 % (11.9-15.9); WHITE BLOOD COUNT 5.7 K/mm3 (4.0-10.0)
[2022-05-09 07:56] LABS: TOT PROT 6.5 g/dl (6.4-8.2)
[2022-05-09 09:26] VITALS: BP 153/77; PULSE 72
[2022-05-09 09:29] LABS: ALBUMIN 3.2 g/dl (3.4-5.0); BILIRUBIN,TOTAL 0.6 mg/dL (0.2-1); BLOOD UREA NITROGEN 22.2 mg/dL (7-18); CALCIUM 8.6 mg/dL (8.5-10.1); CREATININE 1.3 mg/dL (0.55-1.3); MAGNESIUM 2.3 mg/dL (1.8-2.4)
[2022-05-09] MEDS: POTASSIUM CHLORIDE TABS 20 MEQ TABLET.ER (FP) PO SCH (10:31)
[2022-05-09] MEDS: CEPHALEXIN MONOHYDRATE 500 MG CAPSULE (UD) PO SCH (10:31)
[2022-05-09] MEDS: ENOXAPARIN NA (PORCINE) 40 MG/0.4 ML DISP.SYRIN SQ SCH (10:32)
[2022-05-09] MEDS: guaiFENesin/D-M SUGAR-FREE/ACLHOL-FREE 5 ML UNIT DOSE PO PRN (10:37)
== END 2022-05-09 14:02 | disposition home or self-care (01) | DRG 177 ==
LOC: SUPCPDRO 10:41 → JER 10:41 → OBSVTOIN 14:15 → JERBED 14:15 → INTOOBSV 14:15 → J4S 05-03 20:02
PROVIDERS: ADMIT Internal Medicine; ATTEND Nurse Practitioner Family
PROC: XW033E5 Introduction of Remdesivir Anti-infective into Peripheral Vein, Percutaneous Approach, New Technology Group 5 (ICD-10-PCS; principal; 2022-05-02)
DX: U07.1 COVID-19 (principal); I50.33 Acute on chronic diastolic (congestive) heart failure; N39.0 Urinary tract infection, site not specified; I24.9 Acute ischemic heart disease, unspecified; E11.9 Type 2 diabetes mellitus without complications; I11.0 Hypertensive heart disease with heart failure; E78.5 Hyperlipidemia, unspecified; R06.01 Orthopnea; R05.9 Cough, unspecified; R06.02 Shortness of breath; N40.0 Benign prostatic hyperplasia without lower urinary tract symptoms; B96.1 Klebsiella pneumoniae [K. pneumoniae] as the cause of diseases classified elsewhere; R60.0 Localized edema; E87.70 Fluid overload, unspecified; E66.9 Obesity, unspecified; Z68.29 Body mass index [BMI] 29.0-29.9, adult
CPT/HCPCS: 0241U-QW; 36415; 71045-TC-FY; 80053; 81003; 82570; 82962; 83036; 83735; 83880; 84156; 84484; 85025; 85610; 85730; 86140; 87086; 87186; 93005; 93010; 97116-GP; 97162-GP; 99285-25; C9399; C9803-CS; J0875; U0003; U0005

== ENCOUNTER 2022-06-13 14:40 | Observation (INO) | payer OTHER ==
[2022-06-13] MEDS ORDERED: FUROSEMIDE 40 MG/4 ML INJECTABLE VIAL IVPUSH ONE (16:40)
[2022-06-13] MEDS ORDERED: FUROSEMIDE 40 MG/4 ML INJECTABLE VIAL ONE (17:09)
[2022-06-13 18:25] LABS: BASO % 0.7 % (0-2.0); EOS % 2.3 % (0-4.5); HEMATOCRIT 36.8 % (35.4-49); HEMOGLOBIN 12.7 GM/dL (11.7-16.9); LYMPH % 39.2 % (8-40); MCH 29.9 pg (25.7-33.7); MCHC 34.5 g/dl (32.0-35.9); MEAN CELL VOLUME 86.8 fl (80-96); MEAN PLT VOLUME 8.3 fl (7.5-11.1); MONO % 6.7 % (3.8-10.2); NEUT % 51.1 % (42.8-82.8); PLATELET COUNT 236 10^3/uL (134-434); RBC 4.24 M/mm3 (4.00-5.60); RDW 14.1 % (11.9-15.9); WHITE BLOOD COUNT 7.7 K/mm3 (4.0-10.0)
[2022-06-13 18:45] LABS: ALBUMIN 3.7 g/dl (3.4-5.0); BLOOD UREA NITROGEN 26.2 mg/dL (7-18)
[2022-06-13 18:48] LABS: CREATININE 1.4 mg/dL (0.55-1.3)
[2022-06-13 18:49] LABS: TOT PROT 7.2 g/dl (6.4-8.2)
[2022-06-13 18:50] LABS: BILIRUBIN,TOTAL 0.5 mg/dL (0.2-1)
[2022-06-13 18:53] LABS: N-TERMINAL BNP 79.6 pg/ml (5-125)
[2022-06-13] MEDS ORDERED: DOCUSATE SODIUM 100 MG CAPSULE (FP) PO PRN (19:51)
[2022-06-13] MEDS ORDERED: ACETAMINOPHEN 325 MG TABLET (FP) PO PRN (19:51)
[2022-06-13] MEDS ORDERED: HEPARIN NA (PORCINE) 5,000 UNITS/ML 1ML VIAL ONE (22:10)
[2022-06-13] MEDS: HEPARIN NA (PORCINE) 5,000 UNITS/ML 1ML VIAL SQ SCH (22:17)
[2022-06-13] MEDS: INSULIN SLIDING SCALE (NOVOLOG) 1 VIAL SQ SCH (22:18)
[2022-06-14] MEDS ORDERED: FUROSEMIDE 40 MG/4 ML INJECTABLE VIAL IVPUSH ONE (06:36)
[2022-06-14 07:15] LABS: BASO % 0.9 % (0-2.0); EOS % 2.7 % (0-4.5); HEMATOCRIT 35.9 % (35.4-49); HEMOGLOBIN 12.3 GM/dL (11.7-16.9); LYMPH % 38.8 % (8-40); MCH 29.6 pg (25.7-33.7); MCHC 34.2 g/dl (32.0-35.9); MEAN CELL VOLUME 86.6 fl (80-96); MEAN PLT VOLUME 8.4 fl (7.5-11.1); MONO % 6.8 % (3.8-10.2); NEUT % 50.8 % (42.8-82.8); PLATELET COUNT 233 10^3/uL (134-434); RBC 4.14 M/mm3 (4.00-5.60); RDW 14.3 % (11.9-15.9); WHITE BLOOD COUNT 7.5 K/mm3 (4.0-10.0)
[2022-06-14 07:20] LABS: CALCIUM 9.1 mg/dL (8.5-10.1)
[2022-06-14 07:21] LABS: MAGNESIUM 2.3 mg/dL (1.8-2.4)
[2022-06-14 07:24] LABS: CREATININE 1.2 mg/dL (0.55-1.3); PHOSPHOROUS 4.2 mg/dL (2.5-4.9)
[2022-06-14 07:28] LABS: ACTIVATED PTT 34.7 SECONDS (25.2-36.5)
[2022-06-14] MEDS ORDERED: PANTOPRAZOLE 40 MG TABLET PO ONE (08:17)
[2022-06-14] MEDS ORDERED: ASPIRIN 81 MG CHEWABLE TABLETS ONE (08:17)
[2022-06-14] MEDS ORDERED: CLOPIDOGREL BISULFATE 75 MG TABLET (FP) ONE (08:17)
[2022-06-14] MEDS ORDERED: TAMSULOSIN HCL 0.4 MG CAP ONE (08:17)
[2022-06-14] MEDS ORDERED: FAMOTIDINE 20 MG TABLET ONE (08:17)
[2022-06-14] MEDS ORDERED: BACLOFEN 10 MG TABLET (FP) ONE (08:18)
[2022-06-14] MEDS ORDERED: LORATADINE 10 MG TABLET ONE (08:18)
[2022-06-14] MEDS ORDERED: HEPARIN NA (PORCINE) 5,000 UNITS/ML 1ML VIAL ONE (08:18)
[2022-06-14] MEDS ORDERED: FUROSEMIDE 40 MG/4 ML INJECTABLE VIAL ONE ×2 (08:18→08:19)
[2022-06-14 08:43] LABS: INR 1.15 (0.83-1.09); PROTHROMBIN TIME (PATIENT) 13.3 SEC (9.7-13.0)
[2022-06-14] MEDS: INSULIN SLIDING SCALE (NOVOLOG) 1 VIAL SQ SCH ×4 (09:04→22:06)
[2022-06-14] MEDS: FLUoxetine HCL 20 MG CAPSULE PO SCH (09:05)
[2022-06-14] MEDS: TAMSULOSIN HCL 0.4 MG CAP PO SCH (09:05)
[2022-06-14] MEDS: PANTOPRAZOLE 40 MG TABLET PO SCH (09:05)
[2022-06-14] MEDS: FAMOTIDINE 20 MG TABLET PO SCH (09:05)
[2022-06-14] MEDS: ASPIRIN 81 MG CHEWABLE TABLETS PO SCH (09:05)
[2022-06-14] MEDS: LORATADINE 10 MG TABLET PO SCH (09:05)
[2022-06-14] MEDS: BACLOFEN 10 MG TABLET (FP) PO SCH (09:05)
[2022-06-14] MEDS: CLOPIDOGREL BISULFATE 75 MG TABLET (FP) PO SCH (09:05)
[2022-06-14] MEDS ORDERED: FUROSEMIDE 40 MG/4 ML INJECTABLE VIAL IVPUSH SCH (10:00)
[2022-06-14] MEDS: HEPARIN NA (PORCINE) 5,000 UNITS/ML 1ML VIAL SQ SCH ×2 (11:43→21:47)
[2022-06-14] MEDS ORDERED: REMDESIVIR 200 MG in SODIUM CHLORIDE 250 ML IVPB ONE (15:29)
[2022-06-14 17:09] VITALS: BMI 34.6
[2022-06-14] MEDS: ATORVASTATIN CA 40 MG TABLET (FP) PO SCH (21:47)
[2022-06-15] MEDS: INSULIN SLIDING SCALE (NOVOLOG) 1 VIAL SQ SCH ×4 (06:15→21:53)
[2022-06-15 09:53] LABS: BASO % 0.8 % (0-2.0); EOS % 2.4 % (0-4.5); HEMATOCRIT 36.4 % (35.4-49); HEMOGLOBIN 12.8 GM/dL (11.7-16.9); LYMPH % 42.8 % (8-40); MCHC 35.2 g/dl (32.0-35.9); MEAN CELL VOLUME 85.3 fl (80-96); MONO % 7.3 % (3.8-10.2); NEUT % 46.7 % (42.8-82.8); PLATELET COUNT 241 10^3/uL (134-434); RBC 4.27 M/mm3 (4.00-5.60); RDW 14.3 % (11.9-15.9); WHITE BLOOD COUNT 6.8 K/mm3 (4.0-10.0)
[2022-06-15] MEDS: FAMOTIDINE 20 MG TABLET PO SCH (10:05)
[2022-06-15] MEDS: TAMSULOSIN HCL 0.4 MG CAP PO SCH (10:05)
[2022-06-15] MEDS: PANTOPRAZOLE 40 MG TABLET PO SCH (10:05)
[2022-06-15] MEDS: LORATADINE 10 MG TABLET PO SCH (10:05)
[2022-06-15] MEDS: BACLOFEN 10 MG TABLET (FP) PO SCH (10:06)
[2022-06-15] MEDS: FLUoxetine HCL 20 MG CAPSULE PO SCH ×2 (10:06→10:23)
[2022-06-15] MEDS: CLOPIDOGREL BISULFATE 75 MG TABLET (FP) PO SCH (10:06)
[2022-06-15] MEDS: FUROSEMIDE 40 MG/4 ML INJECTABLE VIAL IVPUSH SCH (10:06)
[2022-06-15] MEDS: ASPIRIN 81 MG CHEWABLE TABLETS PO SCH (10:06)
[2022-06-15] MEDS: HEPARIN NA (PORCINE) 5,000 UNITS/ML 1ML VIAL SQ SCH ×2 (10:07→21:34)
[2022-06-15 10:15] LABS: ALBUMIN 3.5 g/dl (3.4-5.0); BLOOD UREA NITROGEN 22.7 mg/dL (7-18); CALCIUM 9.1 mg/dL (8.5-10.1)
[2022-06-15 10:19] LABS: CREATININE 1.3 mg/dL (0.55-1.3)
[2022-06-15 10:20] LABS: BILIRUBIN,TOTAL 0.5 mg/dL (0.2-1); TOT PROT 6.8 g/dl (6.4-8.2)
[2022-06-15] MEDS ORDERED: REMDESIVIR 100 MG in SODIUM CHLORIDE 250 ML IVPB SCH (16:00)
[2022-06-15] MEDS: ATORVASTATIN CA 40 MG TABLET (FP) PO SCH (21:35)
[2022-06-16] MEDS: INSULIN SLIDING SCALE (NOVOLOG) 1 VIAL SQ SCH ×2 (06:56→12:25)
[2022-06-16] MEDS: LORATADINE 10 MG TABLET PO SCH (09:19)
[2022-06-16] MEDS: TAMSULOSIN HCL 0.4 MG CAP PO SCH (09:19)
[2022-06-16] MEDS: BACLOFEN 10 MG TABLET (FP) PO SCH (09:20)
[2022-06-16] MEDS: HEPARIN NA (PORCINE) 5,000 UNITS/ML 1ML VIAL SQ SCH (09:20)
[2022-06-16] MEDS: FUROSEMIDE 40 MG/4 ML INJECTABLE VIAL IVPUSH SCH ×2 (09:20→10:40)
[2022-06-16] MEDS: ASPIRIN 81 MG CHEWABLE TABLETS PO SCH (09:20)
[2022-06-16] MEDS: CLOPIDOGREL BISULFATE 75 MG TABLET (FP) PO SCH (09:20)
[2022-06-16] MEDS: FLUoxetine HCL 20 MG CAPSULE PO SCH (09:20)
[2022-06-16] MEDS: PANTOPRAZOLE 40 MG TABLET PO SCH (09:20)
[2022-06-16] MEDS: FAMOTIDINE 20 MG TABLET PO SCH (09:20)
[2022-06-16] MEDS ORDERED: FUROSEMIDE 40 MG TABLET (FP) PO ONE (09:59)
[2022-06-16] MEDS ORDERED: LIDOCAINE 5% TOPICAL PATCH TP SCH (10:00)
[2022-06-16 10:04] LABS: EOS % 2.2 % (0-4.5); HEMATOCRIT 35.5 % (35.4-49); HEMOGLOBIN 12.3 GM/dL (11.7-16.9); LYMPH % 38.8 % (8-40); MCH 29.9 pg (25.7-33.7); MCHC 34.6 g/dl (32.0-35.9); MEAN CELL VOLUME 86.2 fl (80-96); MONO % 7.1 % (3.8-10.2); NEUT % 50.9 % (42.8-82.8); PLATELET COUNT 228 10^3/uL (134-434); RBC 4.12 M/mm3 (4.00-5.60); RDW 14.1 % (11.9-15.9)
[2022-06-16] MEDS ORDERED: AMMONIUM LACTATE 12% LOTION 225 GM BOTTLE TP PRN (10:26)
[2022-06-16 10:39] LABS: CALCIUM 8.8 mg/dL (8.5-10.1)
[2022-06-16 10:40] LABS: ALBUMIN 3.2 g/dl (3.4-5.0); BLOOD UREA NITROGEN 18.9 mg/dL (7-18); MAGNESIUM 2.1 mg/dL (1.8-2.4)
[2022-06-16 10:43] LABS: CREATININE 1.2 mg/dL (0.55-1.3)
[2022-06-16 10:44] LABS: TOT PROT 6.4 g/dl (6.4-8.2)
[2022-06-16 10:45] LABS: BILIRUBIN,TOTAL 0.5 mg/dL (0.2-1)
[2022-06-16] MEDS ORDERED: REMDESIVIR 100 MG in SODIUM CHLORIDE 250 ML IVPB SCH (11:00)
[2022-06-16 13:58] VITALS: BP 118/70; PULSE 80; RESP 18; TEMP 98.3
[2022-06-16] MEDS ORDERED: LIDOCAINE PATCH REMOVAL MC SCH (22:00)
== END 2022-06-16 15:38 | disposition home or self-care (01) ==
LOC: JER 14:40 → JERBED 19:11 → J5S 06-14 14:07
PROVIDERS: ADMIT Internal Medicine; ATTEND Internal Medicine
PROC: 3E033GC Introduction of Other Therapeutic Substance into Peripheral Vein, Percutaneous Approach (ICD-10-PCS; principal; 2022-06-13)
PROC: 3E023GC Introduction of Other Therapeutic Substance into Muscle, Percutaneous Approach (ICD-10-PCS; 2022-06-13)
DX: U07.1 COVID-19 (principal); I50.9 Heart failure, unspecified; I11.0 Hypertensive heart disease with heart failure; I69.351 Hemiplegia and hemiparesis following cerebral infarction affecting right dominant side; R42 Dizziness and giddiness; N40.0 Benign prostatic hyperplasia without lower urinary tract symptoms; G89.29 Other chronic pain; M54.9 Dorsalgia, unspecified; E11.9 Type 2 diabetes mellitus without complications; E66.8 Other obesity; Z68.35 Body mass index [BMI] 35.0-35.9, adult
CPT/HCPCS: 0241U-QW; 36415; 71046-TC-FY; 80048; 80053; 82962; 83735; 83880; 84100; 84484; 85025; 85610; 85730; 93005; 93010; 93970-TC; 96365; 96366; 96372; 96375; 96376; 99284-25; C9399; G0378; J0475; J1644

== ENCOUNTER 2022-10-31 09:33 | Observation (INO) | payer OTHER ==
[2022-10-31] MEDS ORDERED: FUROSEMIDE 40 MG TABLET (FP) PO ONE (10:53)
[2022-10-31] MEDS ORDERED: FUROSEMIDE 40 MG TABLET (FP) ONE (11:42)
[2022-10-31 13:43] LABS: BASO % 1.1 % (0-2.0); EOS % 2.9 % (0-4.5); HEMATOCRIT 36.9 % (35.4-49); HEMOGLOBIN 12.2 GM/dL (11.7-16.9); LYMPH % 27.5 % (8-40); MCH 28.5 pg (25.7-33.7); MCHC 33.1 g/dl (32.0-35.9); MEAN PLT VOLUME 8.9 fl (7.5-11.1); MONO % 8.8 % (3.8-10.2); NEUT % 59.7 % (42.8-82.8); PLATELET COUNT 241 10^3/uL (134-434); RBC 4.29 M/mm3 (4.00-5.60); RDW 14.3 % (11.9-15.9); WHITE BLOOD COUNT 6.5 K/mm3 (4.0-10.0)
[2022-10-31 14:05] LABS: POTASSIUM 4.1 mmol/L (3.5-5.1)
[2022-10-31 14:07] LABS: CALCIUM 9.1 mg/dL (8.5-10.1)
[2022-10-31 14:09] LABS: ALBUMIN 3.5 g/dl (3.4-5.0); BLOOD UREA NITROGEN 36.8 mg/dL (7-18)
[2022-10-31 14:12] LABS: BILIRUBIN,TOTAL 0.4 mg/dL (0.2-1); CREATININE 1.8 mg/dL (0.55-1.3)
[2022-10-31 14:33] LABS: MAGNESIUM 2.2 mg/dL (1.8-2.4)
[2022-10-31 14:40] LABS: N-TERMINAL BNP 99.1 pg/ml (5-125)
[2022-10-31 15:49] LABS: URINE APPEARANCE CLEAR; URINE BILIRUBIN NEGATIVE (NEGATIVE); URINE COLOR YELLOW; URINE GLUCOSE (UA) NEGATIVE (NEGATIVE); URINE KETONE NEGATIVE (NEGATIVE); URINE LEUK ESTERASE NEGATIVE (NEGATIVE); URINE NITRITE NEGATIVE (NEGATIVE); URINE PROTEIN NEGATIVE (NEGATIVE); URINE UROBILINOGEN 0.2 mg/dL (0.2-1.0)
[2022-10-31] MEDS: BACLOFEN 10 MG TABLET (FP) PO SCH (21:42)
[2022-10-31] MEDS: ATORVASTATIN CA 40 MG TABLET (FP) PO SCH (21:42)
[2022-10-31] MEDS: TAMSULOSIN HCL 0.4 MG CAP PO SCH (21:42)
[2022-10-31] MEDS: GABAPENTIN 300 MG CAPSULE PO SCH (21:42)
[2022-10-31] MEDS: INSULIN SLIDING SCALE (NOVOLOG) 1 VIAL SQ SCH (21:48)
[2022-10-31] MEDS ORDERED: POLYETHYLENE GLYCOL (HEALTHYLAX) 3350 17 GM PACKET PO PRN (22:00)
[2022-11-01] MEDS: INSULIN SLIDING SCALE (NOVOLOG) 1 VIAL SQ SCH ×4 (06:44→23:37)
[2022-11-01] MEDS ORDERED: FUROSEMIDE 40 MG/4 ML INJECTABLE VIAL IVPUSH ONE (08:20)
[2022-11-01 09:29] LABS: BASO % 1.2 % (0-2.0); EOS % 3.2 % (0-4.5); HEMATOCRIT 37.7 % (35.4-49); HEMOGLOBIN 12.4 GM/dL (11.7-16.9); MCH 28.3 pg (25.7-33.7); MCHC 32.9 g/dl (32.0-35.9); MEAN CELL VOLUME 86.1 fl (80-96); MONO % 9.6 % (3.8-10.2); PLATELET COUNT 224 10^3/uL (134-434); RBC 4.38 M/mm3 (4.00-5.60); RDW 14.3 % (11.9-15.9); WHITE BLOOD COUNT 6.7 K/mm3 (4.0-10.0)
[2022-11-01 09:43] LABS: POTASSIUM 4.3 mmol/L (3.5-5.1)
[2022-11-01 09:50] LABS: BLOOD UREA NITROGEN 29.7 mg/dL (7-18); CALCIUM 9.4 mg/dL (8.5-10.1)
[2022-11-01 09:53] LABS: CREATININE 1.5 mg/dL (0.55-1.3); PHOSPHOROUS 3.4 mg/dL (2.5-4.9)
[2022-11-01] MEDS ORDERED: POLYETHYLENE GLYCOL (HEALTHYLAX) 3350 17 GM PACKET PO SCH (10:00)
[2022-11-01] MEDS: PANTOPRAZOLE 40 MG TABLET PO SCH (10:11)
[2022-11-01] MEDS: TORSEMIDE 20 MG TABLET (FP) PO SCH (10:11)
[2022-11-01] MEDS: LOSARTAN POTASSIUM 50 MG TABLET PO SCH (10:11)
[2022-11-01] MEDS: FOLIC ACID 1 MG TABLET (FP) PO SCH (10:11)
[2022-11-01] MEDS: CLOPIDOGREL BISULFATE 75 MG TABLET (FP) PO SCH (10:11)
[2022-11-01] MEDS: ASPIRIN 81 MG CHEWABLE TABLETS PO SCH (10:11)
[2022-11-01] MEDS: TAMSULOSIN HCL 0.4 MG CAP PO SCH (22:57)
[2022-11-01] MEDS: GABAPENTIN 300 MG CAPSULE PO SCH (22:57)
[2022-11-01] MEDS: ATORVASTATIN CA 40 MG TABLET (FP) PO SCH (22:57)
[2022-11-01] MEDS: BACLOFEN 10 MG TABLET (FP) PO SCH (22:57)
[2022-11-02] MEDS ORDERED: INSULIN (LEVEMIR) 100 UNITS/ML UNITS SQ SCH (07:00)
[2022-11-02] MEDS: INSULIN SLIDING SCALE (NOVOLOG) 1 VIAL SQ SCH ×4 (07:40→23:01)
[2022-11-02] MEDS ORDERED: INSULIN (NOVOLOG) ASPART 100 UNITS/ML 10ML VIAL ONE (08:11)
[2022-11-02] MEDS ORDERED: INSULIN (LEVEMIR) 100 UNITS/ML UNITS SQ ONE (08:12)
[2022-11-02 09:07] LABS: HEMATOCRIT 37.8 % (35.4-49); HEMOGLOBIN 12.7 GM/dL (11.7-16.9); MCHC 33.7 g/dl (32.0-35.9); MEAN CELL VOLUME 85.9 fl (80-96); MEAN PLT VOLUME 8.8 fl (7.5-11.1); PLATELET COUNT 243 10^3/uL (134-434); RDW 14.2 % (11.9-15.9); WHITE BLOOD COUNT 6.8 K/mm3 (4.0-10.0)
[2022-11-02 09:29] LABS: BLOOD UREA NITROGEN 26.3 mg/dL (7-18); CALCIUM 9.3 mg/dL (8.5-10.1)
[2022-11-02 09:32] LABS: CREATININE 1.3 mg/dL (0.55-1.3)
[2022-11-02] MEDS: PANTOPRAZOLE 40 MG TABLET PO SCH (09:56)
[2022-11-02] MEDS: TORSEMIDE 20 MG TABLET (FP) PO SCH (09:56)
[2022-11-02] MEDS: ASPIRIN 81 MG CHEWABLE TABLETS PO SCH (09:56)
[2022-11-02] MEDS: LOSARTAN POTASSIUM 50 MG TABLET PO SCH (09:56)
[2022-11-02] MEDS: CLOPIDOGREL BISULFATE 75 MG TABLET (FP) PO SCH (09:56)
[2022-11-02] MEDS: FOLIC ACID 1 MG TABLET (FP) PO SCH (09:56)
[2022-11-02] MEDS ORDERED: REMDESIVIR 200 MG in SODIUM CHLORIDE 250 ML IVPB ONE (10:00)
[2022-11-02 14:26] VITALS: BMI 35.5
[2022-11-02] MEDS: GABAPENTIN 300 MG CAPSULE PO SCH (22:53)
[2022-11-02] MEDS: BACLOFEN 10 MG TABLET (FP) PO SCH (22:53)
[2022-11-02] MEDS: ATORVASTATIN CA 40 MG TABLET (FP) PO SCH (22:53)
[2022-11-02] MEDS: TAMSULOSIN HCL 0.4 MG CAP PO SCH (22:53)
[2022-11-03] MEDS: INSULIN SLIDING SCALE (NOVOLOG) 1 VIAL SQ SCH ×3 (06:46→16:41)
[2022-11-03] MEDS: INSULIN (LEVEMIR) 100 UNITS/ML UNITS SQ SCH (06:46)
[2022-11-03] MEDS: INSULIN (NOVOLOG) ASPART 100 UNITS/ML 10ML VIAL SQ SCH ×3 (06:47→16:41)
[2022-11-03] MEDS: REMDESIVIR 100 MG in SODIUM CHLORIDE 250 ML IVPB SCH (10:20)
[2022-11-03] MEDS: ASPIRIN 81 MG CHEWABLE TABLETS PO SCH (10:20)
[2022-11-03] MEDS: CLOPIDOGREL BISULFATE 75 MG TABLET (FP) PO SCH (10:20)
[2022-11-03] MEDS: PANTOPRAZOLE 40 MG TABLET PO SCH (10:21)
[2022-11-03] MEDS: LOSARTAN POTASSIUM 50 MG TABLET PO SCH (10:21)
[2022-11-03] MEDS: TORSEMIDE 20 MG TABLET (FP) PO SCH (10:21)
[2022-11-03] MEDS: FOLIC ACID 1 MG TABLET (FP) PO SCH (10:21)
[2022-11-04] MEDS: INSULIN SLIDING SCALE (NOVOLOG) 1 VIAL SQ SCH ×5 (00:13→21:54)
[2022-11-04] MEDS: TAMSULOSIN HCL 0.4 MG CAP PO SCH ×2 (00:14→21:54)
[2022-11-04] MEDS: BACLOFEN 10 MG TABLET (FP) PO SCH ×2 (00:15→21:54)
[2022-11-04] MEDS: ATORVASTATIN CA 40 MG TABLET (FP) PO SCH ×2 (00:15→21:54)
[2022-11-04] MEDS: GABAPENTIN 300 MG CAPSULE PO SCH ×2 (00:15→21:54)
[2022-11-04] MEDS: INSULIN (LEVEMIR) 100 UNITS/ML UNITS SQ SCH (07:11)
[2022-11-04] MEDS: INSULIN (NOVOLOG) ASPART 100 UNITS/ML 10ML VIAL SQ SCH ×3 (07:11→18:16)
[2022-11-04 09:04] LABS: BASO % 0.8 % (0-2.0); EOS % 3.3 % (0-4.5); HEMATOCRIT 38.5 % (35.4-49); HEMOGLOBIN 12.8 GM/dL (11.7-16.9); LYMPH % 37.4 % (8-40); MCH 28.5 pg (25.7-33.7); MCHC 33.3 g/dl (32.0-35.9); MEAN CELL VOLUME 85.6 fl (80-96); MEAN PLT VOLUME 8.3 fl (7.5-11.1); MONO % 6.9 % (3.8-10.2); NEUT % 51.6 % (42.8-82.8); PLATELET COUNT 262 10^3/uL (134-434); RBC 4.49 M/mm3 (4.00-5.60); RDW 14.3 % (11.9-15.9)
[2022-11-04 09:15] LABS: POTASSIUM 3.9 mmol/L (3.5-5.1)
[2022-11-04 09:17] LABS: ALBUMIN 3.4 g/dl (3.4-5.0); CALCIUM 9.6 mg/dL (8.5-10.1)
[2022-11-04 09:21] LABS: CREATININE 1.6 mg/dL (0.55-1.3)
[2022-11-04 09:22] LABS: BILIRUBIN,TOTAL 0.3 mg/dL (0.2-1); TOT PROT 7.4 g/dl (6.4-8.2)
[2022-11-04] MEDS: TORSEMIDE 20 MG TABLET (FP) PO SCH (10:37)
[2022-11-04] MEDS: FOLIC ACID 1 MG TABLET (FP) PO SCH (10:37)
[2022-11-04] MEDS: REMDESIVIR 100 MG in SODIUM CHLORIDE 250 ML IVPB SCH (10:37)
[2022-11-04] MEDS: ASPIRIN 81 MG CHEWABLE TABLETS PO SCH (10:37)
[2022-11-04] MEDS: PANTOPRAZOLE 40 MG TABLET PO SCH (10:37)
[2022-11-04] MEDS: LOSARTAN POTASSIUM 50 MG TABLET PO SCH (10:37)
[2022-11-04] MEDS: CLOPIDOGREL BISULFATE 75 MG TABLET (FP) PO SCH (10:37)
[2022-11-04] MEDS ORDERED: INSULIN (NOVOLOG) ASPART 100 UNITS/ML 10ML VIAL ONE (12:17)
[2022-11-05] MEDS: INSULIN (LEVEMIR) 100 UNITS/ML UNITS SQ SCH (06:37)
[2022-11-05] MEDS: INSULIN (NOVOLOG) ASPART 100 UNITS/ML 10ML VIAL SQ SCH ×2 (06:38→11:44)
[2022-11-05] MEDS: INSULIN SLIDING SCALE (NOVOLOG) 1 VIAL SQ SCH ×2 (06:40→11:44)
[2022-11-05] MEDS: LOSARTAN POTASSIUM 50 MG TABLET PO SCH (10:02)
[2022-11-05] MEDS: CLOPIDOGREL BISULFATE 75 MG TABLET (FP) PO SCH (10:02)
[2022-11-05] MEDS: TORSEMIDE 20 MG TABLET (FP) PO SCH (10:02)
[2022-11-05] MEDS: ASPIRIN 81 MG CHEWABLE TABLETS PO SCH (10:02)
[2022-11-05] MEDS: PANTOPRAZOLE 40 MG TABLET PO SCH (10:02)
[2022-11-05] MEDS: FOLIC ACID 1 MG TABLET (FP) PO SCH (10:02)
[2022-11-05 11:15] VITALS: BP 121/71; PULSE 82; RESP 20; TEMP 98.2
== END 2022-11-05 11:20 | disposition home or self-care (01) ==
LOC: JER 09:33 → JERBED 14:45 → J8W 20:20
PROVIDERS: ADMIT Internal Medicine; ATTEND Family Medicine
PROC: 3E033GC Introduction of Other Therapeutic Substance into Peripheral Vein, Percutaneous Approach (ICD-10-PCS; principal; 2022-10-31)
PROC: 3E013VG Introduction of Insulin into Subcutaneous Tissue, Percutaneous Approach (ICD-10-PCS; 2022-10-31)
DX: N17.9 Acute kidney failure, unspecified (principal); U07.1 COVID-19; I50.9 Heart failure, unspecified; R41.82 Altered mental status, unspecified; R27.0 Ataxia, unspecified; R60.0 Localized edema; N40.0 Benign prostatic hyperplasia without lower urinary tract symptoms; F32.9 Major depressive disorder, single episode, unspecified; R73.9 Hyperglycemia, unspecified; R91.8 Other nonspecific abnormal finding of lung field; R11.2 Nausea with vomiting, unspecified; K85.90 Acute pancreatitis without necrosis or infection, unspecified; R47.81 Slurred speech; G45.9 Transient cerebral ischemic attack, unspecified; Z86.73 Personal history of transient ischemic attack (TIA), and cerebral infarction without residual deficits; E87.70 Fluid overload, unspecified; R53.1 Weakness; G89.29 Other chronic pain; M54.9 Dorsalgia, unspecified; Z29.9 Encounter for prophylactic measures, unspecified
CPT/HCPCS: 0241U-QW; 36415; 70450-TC; 71046-TC-FY; 72125-TC; 80048; 80053; 81003; 82728; 82962; 83036; 83540; 83615; 83735; 83880; 84100; 84484; 85025; 85027; 86140; 87086; 93005; 93010; 93971-TC; 97116-GP; 99285-25; C9399; G0378; J0475

== ENCOUNTER 2022-11-29 18:38 | Inpatient (IN) | payer OTHER ==
[2022-11-29] MEDS ORDERED: SODIUM CHLORIDE 1,000 ML IV STA (19:49)
[2022-11-29] MEDS ORDERED: ACETAMINOPHEN 1000 MG/100 ML BAG IVPB ONE (19:53)
[2022-11-29] MEDS ORDERED: ACETAMINOPHEN INJECTION 100 ML IVPB ONE (20:24)
[2022-11-29 21:13] LABS: BASO % 0.1 % (0-2.0); EOS % 0.3 % (0-4.5); HEMATOCRIT 37.4 % (35.4-49); HEMOGLOBIN 12.7 GM/dL (11.7-16.9); MCH 28.6 pg (25.7-33.7); MCHC 33.9 g/dl (32.0-35.9); MEAN CELL VOLUME 84.5 fl (80-96); MEAN PLT VOLUME 8.2 fl (7.5-11.1); MONO % 4.7 % (3.8-10.2); NEUT % 86.9 % (42.8-82.8); PLATELET COUNT 228 10^3/uL (134-434); RBC 4.43 M/mm3 (4.00-5.60); RDW 14.3 % (11.9-15.9); WHITE BLOOD COUNT 20.1 K/mm3 (4.0-10.0)
[2022-11-29] MEDS ORDERED: SODIUM CHLORIDE 0.9% 500 ML INFUS.BAG IV ONE (21:32)
[2022-11-29 21:40] LABS: POTASSIUM 4.4 mmol/L (3.5-5.1)
[2022-11-29 21:42] LABS: CALCIUM 9.1 mg/dL (8.5-10.1)
[2022-11-29 21:43] LABS: ALBUMIN 3.7 g/dl (3.4-5.0)
[2022-11-29 21:44] LABS: BLOOD UREA NITROGEN 23.5 mg/dL (7-18)
[2022-11-29 21:46] LABS: CREATININE 1.9 mg/dL (0.55-1.3)
[2022-11-29 21:47] LABS: TOT PROT 7.2 g/dl (6.4-8.2)
[2022-11-29 21:48] LABS: BILIRUBIN,TOTAL 0.7 mg/dL (0.2-1)
[2022-11-29 21:51] LABS: N-TERMINAL BNP 106.1 pg/ml (5-125)
[2022-11-29] MEDS ORDERED: VANCOMYCIN 1 GM in D5W (PRE-DOCKED) 1,000 MG/250 ML (RESTRICTED TO ID ONLY IVPB ONE (21:51)
[2022-11-29] MEDS ORDERED: PIPERACILLIN/TAZOB 3.375 GM 3.375 GM in DEXTROSE 5%-WATER - 50 ML IVPB ONE (21:51)
[2022-11-29 22:26] LABS: ANISOCYTOSIS 2+; MACROCYTOSIS 0
[2022-11-29] MEDS ORDERED: VANCOMYCIN/WATER FOR INJ (PEG) 1,000 MG/200 ML BAG IVPB ONE (22:36)
[2022-11-29] MEDS ORDERED: PIPERACILLIN/TAZOB 4.5 GM 4.5 GM/100 ML BAG IVPB ONE (22:36)
[2022-11-29] MEDS ORDERED: PIPERACILLIN/TAZOB 3.375 GM 3.375 GM/50 ML BAG IVPB ONE (22:42)
[2022-11-29 23:17] LABS: PH,URINE 5.5 (5.0-8.0); URINE APPEARANCE CLEAR; URINE BILIRUBIN NEGATIVE (NEGATIVE); URINE COLOR YELLOW; URINE GLUCOSE (UA) NEGATIVE (NEGATIVE); URINE KETONE NEGATIVE (NEGATIVE); URINE LEUK ESTERASE NEGATIVE (NEGATIVE); URINE NITRITE NEGATIVE (NEGATIVE); URINE PROTEIN TRACE (NEGATIVE)
[2022-11-30 02:45] VITALS: BMI 34.9
[2022-11-30] MEDS ORDERED: INSULIN (NOVOLOG) ASPART 100 UNITS/ML 10ML VIAL ONE ×2 (05:44→21:02)
[2022-11-30] MEDS: INSULIN SLIDING SCALE (NOVOLOG) 1 VIAL SQ SCH ×4 (06:50→21:21)
[2022-11-30] MEDS: ASPIRIN 81 MG CHEWABLE TABLETS PO SCH (09:22)
[2022-11-30] MEDS: PANTOPRAZOLE 40 MG TABLET PO SCH (09:22)
[2022-11-30] MEDS: CLOPIDOGREL BISULFATE 75 MG TABLET (FP) PO SCH (09:22)
[2022-11-30] MEDS: TORSEMIDE 20 MG TABLET (FP) PO SCH (09:22)
[2022-11-30] MEDS: LOSARTAN POTASSIUM 50 MG TABLET PO SCH (09:22)
[2022-11-30] MEDS: TAMSULOSIN HCL 0.4 MG CAP PO SCH (09:22)
[2022-11-30] MEDS ORDERED: PIPERACILLIN/TAZOB 3.375 GM 3.375 GM in DEXTROSE 5%-WATER - 50 ML IVPB SCH (10:00)
[2022-11-30] MEDS ORDERED: PATIENT'S OWN MEDICATION (NON-FORMULARY) (B12/Levomefolate Calcium/B-6 [Foltx Tablet] 1 EA PO SCH (10:00)
[2022-11-30] MEDS: FLUoxetine HCL 20 MG CAPSULE PO SCH (10:44)
[2022-11-30] MEDS ORDERED: VANCOMYCIN PREMIX 1.5 GM 1,500 MG/300 ML BAG IVPB SCH (11:30)
[2022-11-30 12:15] LABS: BASO % 0.2 % (0-2.0); HEMOGLOBIN 11.6 GM/dL (11.7-16.9); LYMPH % 15.9 % (8-40); MCH 28.4 pg (25.7-33.7); MCHC 33.1 g/dl (32.0-35.9); MEAN CELL VOLUME 85.7 fl (80-96); MEAN PLT VOLUME 8.6 fl (7.5-11.1); MONO % 5.4 % (3.8-10.2); NEUT % 77.5 % (42.8-82.8); PLATELET COUNT 202 10^3/uL (134-434); RBC 4.08 M/mm3 (4.00-5.60); RDW 14.2 % (11.9-15.9)
[2022-11-30 12:43] LABS: POTASSIUM 3.9 mmol/L (3.5-5.1)
[2022-11-30 12:44] LABS: CALCIUM 8.2 mg/dL (8.5-10.1)
[2022-11-30 12:45] LABS: BLOOD UREA NITROGEN 19.3 mg/dL (7-18)
[2022-11-30 12:48] LABS: CREATININE 1.5 mg/dL (0.55-1.3)
[2022-11-30] MEDS: CEFTRIAXONE 2 GM in DEXTROSE 5%-WATER 100 ML IVPB SCH (17:28)
[2022-11-30] MEDS: BACLOFEN 10 MG TABLET (FP) PO SCH (21:20)
[2022-11-30] MEDS: ATORVASTATIN CA 40 MG TABLET (FP) PO SCH (21:20)
[2022-11-30] MEDS: GABAPENTIN 300 MG CAPSULE PO SCH (21:21)
[2022-12-01] MEDS: INSULIN SLIDING SCALE (NOVOLOG) 1 VIAL SQ SCH ×4 (06:33→21:42)
[2022-12-01] MEDS ORDERED: INSULIN (NOVOLOG) ASPART 100 UNITS/ML 10ML VIAL ONE ×3 (06:58→21:02)
[2022-12-01] MEDS: FLUoxetine HCL 20 MG CAPSULE PO SCH (09:26)
[2022-12-01] MEDS: TAMSULOSIN HCL 0.4 MG CAP PO SCH (09:26)
[2022-12-01] MEDS: LOSARTAN POTASSIUM 50 MG TABLET PO SCH (09:26)
[2022-12-01] MEDS: TORSEMIDE 20 MG TABLET (FP) PO SCH (09:26)
[2022-12-01] MEDS: CEFTRIAXONE 2 GM in DEXTROSE 5%-WATER 100 ML IVPB SCH (09:26)
[2022-12-01] MEDS: ASPIRIN 81 MG CHEWABLE TABLETS PO SCH (09:26)
[2022-12-01] MEDS: PANTOPRAZOLE 40 MG TABLET PO SCH (09:26)
[2022-12-01] MEDS: CLOPIDOGREL BISULFATE 75 MG TABLET (FP) PO SCH (09:26)
[2022-12-01] MEDS ORDERED: VANCOMYCIN PREMIX 1.5 GM 1,500 MG/300 ML BAG IVPB SCH (11:30)
[2022-12-01] MEDS: BACLOFEN 10 MG TABLET (FP) PO SCH (21:41)
[2022-12-01] MEDS: GABAPENTIN 300 MG CAPSULE PO SCH (21:41)
[2022-12-01] MEDS: ATORVASTATIN CA 40 MG TABLET (FP) PO SCH (21:42)
[2022-12-01 22:03] VITALS: RESP 20
[2022-12-02] MEDS: INSULIN SLIDING SCALE (NOVOLOG) 1 VIAL SQ SCH ×2 (05:59→11:19)
[2022-12-02] MEDS ORDERED: INSULIN (NOVOLOG) ASPART 100 UNITS/ML 10ML VIAL ONE (07:26)
[2022-12-02] MEDS: LOSARTAN POTASSIUM 50 MG TABLET PO SCH (09:22)
[2022-12-02] MEDS: TORSEMIDE 20 MG TABLET (FP) PO SCH (09:22)
[2022-12-02] MEDS: PANTOPRAZOLE 40 MG TABLET PO SCH (09:22)
[2022-12-02] MEDS: TAMSULOSIN HCL 0.4 MG CAP PO SCH (09:22)
[2022-12-02] MEDS: CLOPIDOGREL BISULFATE 75 MG TABLET (FP) PO SCH (09:22)
[2022-12-02] MEDS: ASPIRIN 81 MG CHEWABLE TABLETS PO SCH (09:22)
[2022-12-02] MEDS: CEFTRIAXONE 2 GM in DEXTROSE 5%-WATER 100 ML IVPB SCH (09:23)
[2022-12-02] MEDS: FLUoxetine HCL 20 MG CAPSULE PO SCH (09:25)
[2022-12-02 14:02] VITALS: BP 100/67; PULSE 68; TEMP 97.8
== END 2022-12-02 14:19 | disposition home health service (06) | DRG 690 ==
LOC: JER 18:38 → JERBED 21:51 → J7W 11-30 01:31 → J6S 12-01 08:11 → J7W 12-01 08:11
PROVIDERS: ADMIT Internal Medicine; ATTEND Family Medicine
DX: N39.0 Urinary tract infection, site not specified (principal); I69.351 Hemiplegia and hemiparesis following cerebral infarction affecting right dominant side; N17.9 Acute kidney failure, unspecified; I13.0 Hypertensive heart and chronic kidney disease with heart failure and stage 1 through stage 4 chronic kidney disease, or unspecified chronic kidney disease; E78.5 Hyperlipidemia, unspecified; N40.0 Benign prostatic hyperplasia without lower urinary tract symptoms; I89.0 Lymphedema, not elsewhere classified; Z79.4 Long term (current) use of insulin; E11.9 Type 2 diabetes mellitus without complications; E86.0 Dehydration; M54.9 Dorsalgia, unspecified; Z86.16 Personal history of COVID-19; E11.22 Type 2 diabetes mellitus with diabetic chronic kidney disease; N18.9 Chronic kidney disease, unspecified; I50.9 Heart failure, unspecified; X30.XXXA Exposure to excessive natural heat, initial encounter; Y93.89 Activity, other specified; Y92.89 Other specified places as the place of occurrence of the external cause; Y99.8 Other external cause status
CPT/HCPCS: 0241U-QW; 36415; 71045-TC-FY; 80048; 80053; 81003; 82962; 83605; 83880; 84484; 85025; 87040; 87086; 93005; 93010; 93970-TC; 97116-GP; 99285-25; J0475

== ENCOUNTER 2022-12-24 11:03 | Observation (INO) | payer OTHER ==
[2022-12-24 13:55] LABS: BASO % 0.9 % (0-2.0); EOS % 4.8 % (0-4.5); HEMATOCRIT 36.3 % (35.4-49); HEMOGLOBIN 12.4 GM/dL (11.7-16.9); LYMPH % 28.8 % (8-40); MCH 28.8 pg (25.7-33.7); MCHC 34.3 g/dl (32.0-35.9); MEAN PLT VOLUME 8.1 fl (7.5-11.1); NEUT % 56.5 % (42.8-82.8); PLATELET COUNT 249 10^3/uL (134-434); RBC 4.31 M/mm3 (4.00-5.60); RDW 14.5 % (11.9-15.9); WHITE BLOOD COUNT 7.4 K/mm3 (4.0-10.0)
[2022-12-24 14:04] LABS: INR 1.1 (0.83-1.09); PROTHROMBIN TIME (PATIENT) 12.8 SEC (9.7-13.0)
[2022-12-24 14:07] LABS: ACTIVATED PTT 34.2 SECONDS (25.2-36.5); EPI CELLS 8 /uL (0-25.1); HYALINE CASTS 1 /uL (0-3.1); URINE APPEARANCE CLEAR; URINE BACTERIA 2 /uL (0-1359); URINE BILIRUBIN NEGATIVE (NEGATIVE); URINE COLOR YELLOW; URINE GLUCOSE (UA) NEGATIVE (NEGATIVE); URINE KETONE NEGATIVE (NEGATIVE); URINE LEUK ESTERASE NEGATIVE (NEGATIVE); URINE NITRITE NEGATIVE (NEGATIVE); URINE PROTEIN NEGATIVE (NEGATIVE); URINE RBC 611 /uL (0-23.9); URINE UROBILINOGEN 0.2 mg/dL (0.2-1.0); URINE WBC 7 /uL (0-25.8)
[2022-12-24] MEDS ORDERED: MECLIZINE HCL 25 MG TABLET (FP) PO ONE (14:13)
[2022-12-24] MEDS ORDERED: MECLIZINE HCL 25 MG TABLET (FP) ONE (14:17)
[2022-12-24 14:29] LABS: POTASSIUM 4.5 mmol/L (3.5-5.1)
[2022-12-24 14:31] LABS: CALCIUM 9.1 mg/dL (8.5-10.1)
[2022-12-24 14:32] LABS: ALBUMIN 3.3 g/dl (3.4-5.0); BLOOD UREA NITROGEN 29.4 mg/dL (7-18)
[2022-12-24 14:35] LABS: CREATININE 1.6 mg/dL (0.55-1.3)
[2022-12-24 14:36] LABS: BILIRUBIN,TOTAL 0.4 mg/dL (0.2-1); TOT PROT 7.4 g/dl (6.4-8.2)
[2022-12-24 20:53] LABS: EPI CELLS 3 /uL (0-25.1); HYALINE CASTS 0 /uL (0-3.1); URINE APPEARANCE CLEAR; URINE BACTERIA 2 /uL (0-1359); URINE BILIRUBIN NEGATIVE (NEGATIVE); URINE COLOR YELLOW; URINE GLUCOSE (UA) 2+ (NEGATIVE); URINE KETONE NEGATIVE (NEGATIVE); URINE LEUK ESTERASE NEGATIVE (NEGATIVE); URINE NITRITE NEGATIVE (NEGATIVE); URINE PROTEIN TRACE (NEGATIVE); URINE RBC 645 /uL (0-23.9); URINE UROBILINOGEN 0.2 mg/dL (0.2-1.0); URINE WBC 9 /uL (0-25.8)
[2022-12-24] MEDS ORDERED: ATORVASTATIN CA 40 MG TABLET (FP) ONE (20:54)
[2022-12-24] MEDS: INSULIN SLIDING SCALE (NOVOLOG) 1 VIAL SQ SCH (21:07)
[2022-12-24] MEDS: ATORVASTATIN CA 40 MG TABLET (FP) PO SCH (21:07)
[2022-12-24] MEDS ORDERED: INSULIN SLIDING SCALE (NOVOLOG) 1 VIAL SQ SCH (22:00)
[2022-12-24 23:24] VITALS: BMI 35.2
[2022-12-25] MEDS: INSULIN SLIDING SCALE (NOVOLOG) 1 VIAL SQ SCH ×4 (06:54→21:40)
[2022-12-25] MEDS: FLUoxetine HCL 20 MG CAPSULE PO SCH (09:48)
[2022-12-25] MEDS: amLODIPine BESYLATE 5 MG TABLET (FP) PO SCH (09:48)
[2022-12-25] MEDS: CLOPIDOGREL BISULFATE 75 MG TABLET (FP) PO SCH (09:48)
[2022-12-25] MEDS: LOSARTAN POTASSIUM 50 MG TABLET PO SCH (09:48)
[2022-12-25] MEDS: PANTOPRAZOLE 40 MG TABLET PO SCH (09:48)
[2022-12-25] MEDS: TAMSULOSIN HCL 0.4 MG CAP PO SCH (09:48)
[2022-12-25] MEDS: TORSEMIDE 20 MG TABLET (FP) PO SCH (09:49)
[2022-12-25 09:51] LABS: BASO % 1.1 % (0-2.0); EOS % 4.6 % (0-4.5); HEMATOCRIT 34.4 % (35.4-49); HEMOGLOBIN 12.2 GM/dL (11.7-16.9); LYMPH % 34.4 % (8-40); MCH 29.6 pg (25.7-33.7); MCHC 35.5 g/dl (32.0-35.9); MEAN CELL VOLUME 83.2 fl (80-96); MONO % 9.6 % (3.8-10.2); NEUT % 50.3 % (42.8-82.8); PLATELET COUNT 253 10^3/uL (134-434); RBC 4.13 M/mm3 (4.00-5.60); RDW 14.3 % (11.9-15.9); WHITE BLOOD COUNT 6.6 K/mm3 (4.0-10.0)
[2022-12-25 12:21] LABS: POTASSIUM 4.1 mmol/L (3.5-5.1)
[2022-12-25 13:28] LABS: ALBUMIN 3.3 g/dl (3.4-5.0); BLOOD UREA NITROGEN 20.2 mg/dL (7-18); CALCIUM 8.8 mg/dL (8.5-10.1); MAGNESIUM 2.2 mg/dL (1.8-2.4)
[2022-12-25] MEDS ORDERED: MECLIZINE HCL 12.5 MG TABLET PO PRN (13:28)
[2022-12-25 13:31] LABS: CREATININE 1.2 mg/dL (0.55-1.3)
[2022-12-25 13:33] LABS: BILIRUBIN,TOTAL 0.5 mg/dL (0.2-1)
[2022-12-25] MEDS: MECLIZINE HCL 12.5 MG TABLET PO SCH (21:40)
[2022-12-25] MEDS: ATORVASTATIN CA 40 MG TABLET (FP) PO SCH (21:40)
[2022-12-26] MEDS: MECLIZINE HCL 12.5 MG TABLET PO SCH ×3 (05:41→21:23)
[2022-12-26] MEDS: INSULIN SLIDING SCALE (NOVOLOG) 1 VIAL SQ SCH ×4 (06:52→21:28)
[2022-12-26] MEDS: amLODIPine BESYLATE 5 MG TABLET (FP) PO SCH (10:29)
[2022-12-26] MEDS: TAMSULOSIN HCL 0.4 MG CAP PO SCH (10:29)
[2022-12-26] MEDS: FLUoxetine HCL 20 MG CAPSULE PO SCH (10:29)
[2022-12-26] MEDS: TORSEMIDE 20 MG TABLET (FP) PO SCH (10:29)
[2022-12-26] MEDS: LOSARTAN POTASSIUM 50 MG TABLET PO SCH (10:29)
[2022-12-26] MEDS: PANTOPRAZOLE 40 MG TABLET PO SCH (10:30)
[2022-12-26] MEDS: CLOPIDOGREL BISULFATE 75 MG TABLET (FP) PO SCH (10:30)
[2022-12-26] MEDS ORDERED: TORSEMIDE 20 MG TABLET (FP) PO SCH (16:15)
[2022-12-26] MEDS ORDERED: INSULIN (NOVOLOG) ASPART 100 UNITS/ML 10ML VIAL ONE ×2 (17:44→21:17)
[2022-12-26] MEDS ORDERED: ACETAMINOPHEN 1000 MG/100 ML BAG IVPB PRN (20:15)
[2022-12-26] MEDS: ATORVASTATIN CA 40 MG TABLET (FP) PO SCH (21:23)
[2022-12-26 22:13] VITALS: RESP 20
[2022-12-27] MEDS: MECLIZINE HCL 12.5 MG TABLET PO SCH ×2 (06:16→13:39)
[2022-12-27] MEDS: INSULIN SLIDING SCALE (NOVOLOG) 1 VIAL SQ SCH ×2 (06:31→11:32)
[2022-12-27] MEDS: LOSARTAN POTASSIUM 50 MG TABLET PO SCH (09:58)
[2022-12-27] MEDS: TAMSULOSIN HCL 0.4 MG CAP PO SCH (09:58)
[2022-12-27] MEDS: PANTOPRAZOLE 40 MG TABLET PO SCH (09:58)
[2022-12-27] MEDS: amLODIPine BESYLATE 5 MG TABLET (FP) PO SCH (09:58)
[2022-12-27] MEDS: FLUoxetine HCL 20 MG CAPSULE PO SCH (09:58)
[2022-12-27] MEDS: TORSEMIDE 20 MG TABLET (FP) PO SCH (09:58)
[2022-12-27] MEDS: CLOPIDOGREL BISULFATE 75 MG TABLET (FP) PO SCH (09:58)
[2022-12-27] MEDS ORDERED: MAGNESIUM HYDROX 2400MG/30ML ORAL SUSPENSION 30 ML CUP PO ONE (12:41)
[2022-12-27 14:51] VITALS: BP 127/76; PULSE 85; TEMP 98.6
== END 2022-12-27 15:22 | disposition home health service (06) ==
LOC: JER 11:03 → JERBED 15:07 → J7W 21:50
PROVIDERS: ADMIT Internal Medicine; ATTEND Internal Medicine
PROC: 3E033NZ Introduction of Analgesics, Hypnotics, Sedatives into Peripheral Vein, Percutaneous Approach (ICD-10-PCS; principal; 2022-12-24)
PROC: 3E013VG Introduction of Insulin into Subcutaneous Tissue, Percutaneous Approach (ICD-10-PCS; 2022-12-24)
DX: I13.0 Hypertensive heart and chronic kidney disease with heart failure and stage 1 through stage 4 chronic kidney disease, or unspecified chronic kidney disease (principal); I11.0 Hypertensive heart disease with heart failure; E11.22 Type 2 diabetes mellitus with diabetic chronic kidney disease; N17.9 Acute kidney failure, unspecified; R60.0 Localized edema; N40.0 Benign prostatic hyperplasia without lower urinary tract symptoms; R31.0 Gross hematuria; E78.5 Hyperlipidemia, unspecified; I50.9 Heart failure, unspecified; J44.9 Chronic obstructive pulmonary disease, unspecified; Z86.16 Personal history of COVID-19; R42 Dizziness and giddiness; G89.29 Other chronic pain; M54.50 Low back pain, unspecified; M62.81 Muscle weakness (generalized)
CPT/HCPCS: 36415; 70450-TC; 70551-TC; 71045-TC-FY; 72141-TC; 76775-TC; 80053; 80061; 81003; 82550; 82962; 83735; 84443; 84484; 85025; 85610; 85730; 87086; 87186; 93005; 93010; 96372; 96374; 97116-GP; 97161-GP; 99285-25; G0378

== ENCOUNTER 2023-02-26 11:50 | Inpatient (IN) | payer OTHER ==
[2023-02-26] MEDS ORDERED: FUROSEMIDE 40 MG/4 ML INJECTABLE VIAL IVPUSH ONE (13:25)
[2023-02-26] MEDS ORDERED: FUROSEMIDE 40 MG/4 ML INJECTABLE VIAL ONE (13:49)
[2023-02-26 14:36] LABS: BASO % 1.2 % (0-2.0); EOS % 6.9 % (0-4.5); HEMOGLOBIN 11.5 GM/dL (11.7-16.9); LYMPH % 22.9 % (8-40); MCH 28.3 pg (25.7-33.7); MCHC 32.9 g/dl (32.0-35.9); MEAN PLT VOLUME 8.2 fl (7.5-11.1); MONO % 7.6 % (3.8-10.2); NEUT % 61.4 % (42.8-82.8); PLATELET COUNT 242 10^3/uL (134-434); RBC 4.07 M/mm3 (4.00-5.60); RDW 13.9 % (11.9-15.9)
[2023-02-26 14:56] LABS: ALBUMIN 3.6 g/dl (3.4-5.0); BLOOD UREA NITROGEN 24.6 mg/dL (7-18)
[2023-02-26 14:59] LABS: CREATININE 1.5 mg/dL (0.55-1.3)
[2023-02-26 15:01] LABS: BILIRUBIN,TOTAL 0.5 mg/dL (0.2-1); TOT PROT 7.5 g/dl (6.4-8.2)
[2023-02-26] MEDS ORDERED: INSULIN REGULAR HUMAN 100 UNITS/ML *VIAL SQ ONE (15:32)
[2023-02-26] MEDS ORDERED: INSULIN REGULAR HUMAN 100 UNITS/ML *VIAL IVPUSH ONE (16:06)
[2023-02-26] MEDS: INSULIN SLIDING SCALE (NOVOLOG) 1 VIAL SQ SCH ×2 (16:56→22:47)
[2023-02-26 20:29] LABS: N-TERMINAL BNP 190.8 pg/ml (5-125)
[2023-02-26] MEDS ORDERED: BACLOFEN 10 MG TABLET (FP) ONE (22:23)
[2023-02-26] MEDS ORDERED: ATORVASTATIN CA 40 MG TABLET (FP) ONE (22:23)
[2023-02-26] MEDS ORDERED: GABAPENTIN 300 MG CAPSULE ONE (22:23)
[2023-02-26] MEDS: GABAPENTIN 300 MG CAPSULE PO SCH (22:47)
[2023-02-26] MEDS: BACLOFEN 10 MG TABLET (FP) PO SCH (22:47)
[2023-02-26] MEDS: ATORVASTATIN CA 40 MG TABLET (FP) PO SCH (22:47)
[2023-02-27] MEDS ORDERED: PANTOPRAZOLE 40 MG TABLET PO ONE (06:29)
[2023-02-27] MEDS ORDERED: BACLOFEN 10 MG TABLET (FP) ONE ×2 (06:29→14:42)
[2023-02-27] MEDS: BACLOFEN 10 MG TABLET (FP) PO SCH ×3 (06:41→21:15)
[2023-02-27] MEDS: PANTOPRAZOLE 40 MG TABLET PO SCH (06:56)
[2023-02-27] MEDS: INSULIN SLIDING SCALE (NOVOLOG) 1 VIAL SQ SCH ×4 (06:56→21:20)
[2023-02-27] MEDS ORDERED: TAMSULOSIN HCL 0.4 MG CAP ONE (07:37)
[2023-02-27] MEDS ORDERED: LOSARTAN POTASSIUM 50 MG TABLET ONE ×2 (07:37→09:48)
[2023-02-27] MEDS: TAMSULOSIN HCL 0.4 MG CAP PO SCH (07:41)
[2023-02-27] MEDS ORDERED: CLOPIDOGREL BISULFATE 75 MG TABLET (FP) ONE (09:48)
[2023-02-27] MEDS ORDERED: FUROSEMIDE 40 MG/4 ML INJECTABLE VIAL ONE (09:48)
[2023-02-27] MEDS ORDERED: GABAPENTIN 300 MG CAPSULE ONE (09:48)
[2023-02-27] MEDS: CLOPIDOGREL BISULFATE 75 MG TABLET (FP) PO SCH (09:57)
[2023-02-27] MEDS: FUROSEMIDE 40 MG/4 ML INJECTABLE VIAL IVPUSH SCH (09:57)
[2023-02-27] MEDS: FLUoxetine HCL 20 MG CAPSULE PO SCH (09:57)
[2023-02-27] MEDS: LOSARTAN POTASSIUM 50 MG TABLET PO SCH (09:57)
[2023-02-27] MEDS: GABAPENTIN 300 MG CAPSULE PO SCH ×2 (09:57→21:14)
[2023-02-27] MEDS ORDERED: INSULIN (NOVOLOG) ASPART 100 UNITS/ML 10ML VIAL ONE ×5 (11:56→21:02)
[2023-02-27 11:58] LABS: BASO % 0.9 % (0-2.0); EOS % 5.7 % (0-4.5); HEMATOCRIT 38.4 % (35.4-49); HEMOGLOBIN 12.7 GM/dL (11.7-16.9); LYMPH % 26.1 % (8-40); MCH 28.5 pg (25.7-33.7); MCHC 33.1 g/dl (32.0-35.9); MEAN CELL VOLUME 86.3 fl (80-96); MEAN PLT VOLUME 8.2 fl (7.5-11.1); MONO % 6.7 % (3.8-10.2); NEUT % 60.6 % (42.8-82.8); PLATELET COUNT 264 10^3/uL (134-434); RBC 4.46 M/mm3 (4.00-5.60); WHITE BLOOD COUNT 7.6 K/mm3 (4.0-10.0)
[2023-02-27 12:05] LABS: INR 1.16 (0.83-1.09); PROTHROMBIN TIME (PATIENT) 13.4 SEC (9.7-13.0)
[2023-02-27 12:08] LABS: ACTIVATED PTT 33.4 SECONDS (25.2-36.5)
[2023-02-27 12:28] LABS: POTASSIUM 3.9 mmol/L (3.5-5.1)
[2023-02-27 12:31] LABS: ALBUMIN 3.6 g/dl (3.4-5.0); BLOOD UREA NITROGEN 21.4 mg/dL (7-18); CALCIUM 9.2 mg/dL (8.5-10.1)
[2023-02-27 12:34] LABS: CREATININE 1.3 mg/dL (0.55-1.3)
[2023-02-27 12:36] LABS: BILIRUBIN,TOTAL 0.8 mg/dL (0.2-1); TOT PROT 7.6 g/dl (6.4-8.2)
[2023-02-27] MEDS ORDERED: FUROSEMIDE 40 MG/4 ML INJECTABLE VIAL IVPUSH ONE (16:00)
[2023-02-27] MEDS ORDERED: FLU VACCINE (FLULAVAL) PF 60 MCG/0.5 ML SYRINGE 2023-2024 IM ONE (19:30)
[2023-02-27] MEDS: ATORVASTATIN CA 40 MG TABLET (FP) PO SCH (21:14)
[2023-02-28] MEDS: BACLOFEN 10 MG TABLET (FP) PO SCH ×3 (06:26→21:46)
[2023-02-28] MEDS: PANTOPRAZOLE 40 MG TABLET PO SCH (06:26)
[2023-02-28] MEDS: INSULIN SLIDING SCALE (NOVOLOG) 1 VIAL SQ SCH ×4 (07:31→21:49)
[2023-02-28] MEDS ORDERED: INSULIN (NOVOLOG) ASPART 100 UNITS/ML 10ML VIAL ONE ×4 (07:52→21:08)
[2023-02-28] MEDS: LOSARTAN POTASSIUM 50 MG TABLET PO SCH (09:19)
[2023-02-28] MEDS: FLUoxetine HCL 20 MG CAPSULE PO SCH (09:19)
[2023-02-28] MEDS: CLOPIDOGREL BISULFATE 75 MG TABLET (FP) PO SCH (09:19)
[2023-02-28] MEDS: GABAPENTIN 300 MG CAPSULE PO SCH ×2 (09:19→21:46)
[2023-02-28] MEDS: FUROSEMIDE 40 MG/4 ML INJECTABLE VIAL IVPUSH SCH (09:19)
[2023-02-28] MEDS: TAMSULOSIN HCL 0.4 MG CAP PO SCH (09:19)
[2023-02-28 10:12] LABS: POTASSIUM 3.9 mmol/L (3.5-5.1)
[2023-02-28 10:14] LABS: BLOOD UREA NITROGEN 24.5 mg/dL (7-18)
[2023-02-28 10:17] LABS: ALBUMIN 3.4 g/dl (3.4-5.0)
[2023-02-28 10:19] LABS: TOT PROT 7.7 g/dl (6.4-8.2)
[2023-02-28 10:24] LABS: BILIRUBIN,TOTAL 0.5 mg/dL (0.2-1); CREATININE 1.4 mg/dL (0.55-1.3)
[2023-02-28] MEDS: ATORVASTATIN CA 40 MG TABLET (FP) PO SCH (21:46)
[2023-03-01] MEDS: BACLOFEN 10 MG TABLET (FP) PO SCH ×3 (06:52→21:37)
[2023-03-01] MEDS: PANTOPRAZOLE 40 MG TABLET PO SCH (06:52)
[2023-03-01] MEDS: INSULIN SLIDING SCALE (NOVOLOG) 1 VIAL SQ SCH ×5 (06:55→22:22)
[2023-03-01] MEDS ORDERED: INSULIN (NOVOLOG) ASPART 100 UNITS/ML 10ML VIAL ONE ×2 (07:01→11:48)
[2023-03-01] MEDS: CLOPIDOGREL BISULFATE 75 MG TABLET (FP) PO SCH (09:36)
[2023-03-01] MEDS: FUROSEMIDE 40 MG/4 ML INJECTABLE VIAL IVPUSH SCH ×2 (09:36→14:37)
[2023-03-01] MEDS: GABAPENTIN 300 MG CAPSULE PO SCH ×2 (09:36→21:37)
[2023-03-01] MEDS: FLUoxetine HCL 20 MG CAPSULE PO SCH (09:36)
[2023-03-01] MEDS: LOSARTAN POTASSIUM 50 MG TABLET PO SCH (09:36)
[2023-03-01] MEDS: TAMSULOSIN HCL 0.4 MG CAP PO SCH (09:36)
[2023-03-01] MEDS: ACETAMINOPHEN 325 MG TABLET (FP) PO PRN (09:36)
[2023-03-01] MEDS: METOLAZONE 2.5 MG TABLET (FP) PO SCH (13:38)
[2023-03-01] MEDS: ATORVASTATIN CA 40 MG TABLET (FP) PO SCH (21:39)
[2023-03-01] MEDS: INSULIN (LEVEMIR) 100 UNITS/ML UNITS SQ SCH (22:23)
[2023-03-02] MEDS: FUROSEMIDE 40 MG/4 ML INJECTABLE VIAL IVPUSH SCH ×2 (06:18→13:47)
[2023-03-02] MEDS: INSULIN (LEVEMIR) 100 UNITS/ML UNITS SQ SCH ×2 (06:18→22:07)
[2023-03-02] MEDS: BACLOFEN 10 MG TABLET (FP) PO SCH ×3 (06:18→22:03)
[2023-03-02] MEDS: INSULIN SLIDING SCALE (NOVOLOG) 1 VIAL SQ SCH ×4 (06:25→22:08)
[2023-03-02] MEDS: PANTOPRAZOLE 40 MG TABLET PO SCH (06:25)
[2023-03-02] MEDS: TAMSULOSIN HCL 0.4 MG CAP PO SCH (08:42)
[2023-03-02] MEDS: GABAPENTIN 300 MG CAPSULE PO SCH ×2 (09:42→22:03)
[2023-03-02] MEDS: FLUoxetine HCL 20 MG CAPSULE PO SCH (09:42)
[2023-03-02] MEDS: CLOPIDOGREL BISULFATE 75 MG TABLET (FP) PO SCH (09:42)
[2023-03-02] MEDS: LOSARTAN POTASSIUM 50 MG TABLET PO SCH (09:42)
[2023-03-02] MEDS: METOLAZONE 2.5 MG TABLET (FP) PO SCH (13:17)
[2023-03-02] MEDS: ATORVASTATIN CA 40 MG TABLET (FP) PO SCH (22:03)
[2023-03-03] MEDS: FUROSEMIDE 40 MG/4 ML INJECTABLE VIAL IVPUSH SCH ×2 (06:25→13:48)
[2023-03-03] MEDS: BACLOFEN 10 MG TABLET (FP) PO SCH ×3 (06:26→22:13)
[2023-03-03] MEDS: PANTOPRAZOLE 40 MG TABLET PO SCH (06:26)
[2023-03-03] MEDS: INSULIN (LEVEMIR) 100 UNITS/ML UNITS SQ SCH ×2 (06:32→22:13)
[2023-03-03] MEDS: INSULIN SLIDING SCALE (NOVOLOG) 1 VIAL SQ SCH ×4 (06:39→22:20)
[2023-03-03] MEDS: TAMSULOSIN HCL 0.4 MG CAP PO SCH (08:14)
[2023-03-03] MEDS: CLOPIDOGREL BISULFATE 75 MG TABLET (FP) PO SCH (09:10)
[2023-03-03] MEDS: LOSARTAN POTASSIUM 50 MG TABLET PO SCH (09:10)
[2023-03-03] MEDS: DOCUSATE SODIUM 100 MG CAPSULE (FP) PO PRN ×2 (09:10→17:49)
[2023-03-03] MEDS: GABAPENTIN 300 MG CAPSULE PO SCH ×2 (09:10→22:13)
[2023-03-03] MEDS: FLUoxetine HCL 20 MG CAPSULE PO SCH (09:10)
[2023-03-03] MEDS ORDERED: INSULIN (NOVOLOG) ASPART 100 UNITS/ML 10ML VIAL ONE ×2 (11:13→16:27)
[2023-03-03] MEDS: METOLAZONE 2.5 MG TABLET (FP) PO SCH (13:39)
[2023-03-03] MEDS: ATORVASTATIN CA 40 MG TABLET (FP) PO SCH (22:13)
[2023-03-04] MEDS: PANTOPRAZOLE 40 MG TABLET PO SCH (06:23)
[2023-03-04] MEDS: BACLOFEN 10 MG TABLET (FP) PO SCH ×3 (06:23→21:47)
[2023-03-04] MEDS: INSULIN SLIDING SCALE (NOVOLOG) 1 VIAL SQ SCH ×4 (06:23→21:46)
[2023-03-04] MEDS: FUROSEMIDE 40 MG/4 ML INJECTABLE VIAL IVPUSH SCH ×2 (06:23→13:10)
[2023-03-04] MEDS ORDERED: INSULIN (LEVEMIR) 100 UNITS/ML UNITS SQ SCH (07:00)
[2023-03-04] MEDS: TAMSULOSIN HCL 0.4 MG CAP PO SCH (07:44)
[2023-03-04] MEDS: GABAPENTIN 300 MG CAPSULE PO SCH ×2 (09:19→21:47)
[2023-03-04] MEDS: FLUoxetine HCL 20 MG CAPSULE PO SCH (09:19)
[2023-03-04] MEDS: CLOPIDOGREL BISULFATE 75 MG TABLET (FP) PO SCH (09:19)
[2023-03-04] MEDS: LOSARTAN POTASSIUM 50 MG TABLET PO SCH (09:19)
[2023-03-04] MEDS: METOLAZONE 2.5 MG TABLET (FP) PO SCH (13:10)
[2023-03-04] MEDS ORDERED: INSULIN (NOVOLOG) ASPART 100 UNITS/ML 10ML VIAL ONE (21:13)
[2023-03-04] MEDS: INSULIN (LEVEMIR) 100 UNITS/ML UNITS SQ SCH (21:46)
[2023-03-04] MEDS: ATORVASTATIN CA 40 MG TABLET (FP) PO SCH (21:47)
[2023-03-04 23:47] VITALS: BMI 35.5
[2023-03-05] MEDS: BACLOFEN 10 MG TABLET (FP) PO SCH ×3 (06:33→21:53)
[2023-03-05] MEDS: FUROSEMIDE 40 MG/4 ML INJECTABLE VIAL IVPUSH SCH ×2 (06:33→13:25)
[2023-03-05] MEDS: PANTOPRAZOLE 40 MG TABLET PO SCH (06:33)
[2023-03-05] MEDS: INSULIN (LEVEMIR) 100 UNITS/ML UNITS SQ SCH ×2 (06:34→21:54)
[2023-03-05] MEDS: INSULIN SLIDING SCALE (NOVOLOG) 1 VIAL SQ SCH ×4 (06:34→21:55)
[2023-03-05] MEDS: TAMSULOSIN HCL 0.4 MG CAP PO SCH (08:25)
[2023-03-05] MEDS: LOSARTAN POTASSIUM 50 MG TABLET PO SCH (09:24)
[2023-03-05] MEDS: FLUoxetine HCL 20 MG CAPSULE PO SCH (09:24)
[2023-03-05] MEDS: GABAPENTIN 300 MG CAPSULE PO SCH ×2 (09:24→21:53)
[2023-03-05] MEDS: CLOPIDOGREL BISULFATE 75 MG TABLET (FP) PO SCH (09:24)
[2023-03-05 10:09] LABS: HEMATOCRIT 38.2 % (35.4-49); MCH 28.9 pg (25.7-33.7); MCHC 33.9 g/dl (32.0-35.9); MEAN PLT VOLUME 8.7 fl (7.5-11.1); PLATELET COUNT 259 10^3/uL (134-434); WHITE BLOOD COUNT 9.1 K/mm3 (4.0-10.0)
[2023-03-05 11:00] LABS: POTASSIUM 3.5 mmol/L (3.5-5.1)
[2023-03-05 11:12] LABS: ALBUMIN 3.7 g/dl (3.4-5.0); BLOOD UREA NITROGEN 39.8 mg/dL (7-18); CALCIUM 9.3 mg/dL (8.5-10.1); MAGNESIUM 2.3 mg/dL (1.8-2.4)
[2023-03-05 11:13] LABS: BILIRUBIN,TOTAL 0.5 mg/dL (0.2-1); TOT PROT 8.2 g/dl (6.4-8.2)
[2023-03-05 11:15] LABS: CREATININE 1.6 mg/dL (0.55-1.3)
[2023-03-05] MEDS: METOLAZONE 2.5 MG TABLET (FP) PO SCH (13:25)
[2023-03-05] MEDS ORDERED: INSULIN (NOVOLOG) ASPART 100 UNITS/ML 10ML VIAL ONE (18:30)
[2023-03-05] MEDS: ACETAMINOPHEN 325 MG TABLET (FP) PO PRN (21:53)
[2023-03-05] MEDS: ATORVASTATIN CA 40 MG TABLET (FP) PO SCH (21:53)
[2023-03-05 23:23] VITALS: RESP 18
[2023-03-06] MEDS: FUROSEMIDE 40 MG/4 ML INJECTABLE VIAL IVPUSH SCH (06:15)
[2023-03-06] MEDS: PANTOPRAZOLE 40 MG TABLET PO SCH (06:15)
[2023-03-06] MEDS: BACLOFEN 10 MG TABLET (FP) PO SCH (06:15)
[2023-03-06] MEDS: INSULIN SLIDING SCALE (NOVOLOG) 1 VIAL SQ SCH ×2 (06:16→11:21)
[2023-03-06] MEDS: INSULIN (LEVEMIR) 100 UNITS/ML UNITS SQ SCH (06:49)
[2023-03-06] MEDS: TAMSULOSIN HCL 0.4 MG CAP PO SCH (08:28)
[2023-03-06] MEDS: CLOPIDOGREL BISULFATE 75 MG TABLET (FP) PO SCH (09:57)
[2023-03-06] MEDS: LOSARTAN POTASSIUM 50 MG TABLET PO SCH (09:57)
[2023-03-06] MEDS: FLUoxetine HCL 20 MG CAPSULE PO SCH (09:57)
[2023-03-06] MEDS: GABAPENTIN 300 MG CAPSULE PO SCH (09:57)
[2023-03-06] MEDS ORDERED: INSULIN (NOVOLOG) ASPART 100 UNITS/ML 10ML VIAL ONE (11:17)
[2023-03-06 11:41] VITALS: BP 115/67; PULSE 93; TEMP 98.2
== END 2023-03-06 14:04 | disposition home health service (06) | DRG 291 ==
LOC: JER 11:50 → JERBED 13:58 → J6S 02-27 17:37
PROVIDERS: ADMIT Family Medicine; ATTEND Family Medicine
DX: I13.0 Hypertensive heart and chronic kidney disease with heart failure and stage 1 through stage 4 chronic kidney disease, or unspecified chronic kidney disease (principal); I50.33 Acute on chronic diastolic (congestive) heart failure; N17.9 Acute kidney failure, unspecified; I69.351 Hemiplegia and hemiparesis following cerebral infarction affecting right dominant side; E11.22 Type 2 diabetes mellitus with diabetic chronic kidney disease; E11.65 Type 2 diabetes mellitus with hyperglycemia; E78.5 Hyperlipidemia, unspecified; E66.9 Obesity, unspecified; Z68.34 Body mass index [BMI] 34.0-34.9, adult; N40.0 Benign prostatic hyperplasia without lower urinary tract symptoms; I89.0 Lymphedema, not elsewhere classified; E11.40 Type 2 diabetes mellitus with diabetic neuropathy, unspecified; E87.70 Fluid overload, unspecified; N18.30 Chronic kidney disease, stage 3 unspecified
CPT/HCPCS: 36415; 71045-TC-FY; 80048; 80053; 82962; 83036; 83735; 83880; 84443; 84484; 85025; 85027; 85610; 85730; 93005; 93010; 93306-TC; 93970-TC; 97116-GP; 97162-GP; 99285-25; G0463-25; J0475

== ENCOUNTER 2023-07-03 12:34 | Inpatient (IN) | payer OTHER ==
[2023-07-03 15:58] LABS: BASO % 0.9 % (0-2.0); EOS % 4.6 % (0-4.5); HEMATOCRIT 36.4 % (35.4-49); HEMOGLOBIN 12.6 GM/dL (11.7-16.9); MCH 29.9 pg (25.7-33.7); MCHC 34.6 g/dl (32.0-35.9); MEAN CELL VOLUME 86.4 fl (80-96); MEAN PLT VOLUME 7.9 fl (7.5-11.1); MONO % 6.9 % (3.8-10.2); NEUT % 47.6 % (42.8-82.8); PLATELET COUNT 260 10^3/uL (134-434); RBC 4.22 M/mm3 (4.00-5.60); RDW 14.9 % (11.9-15.9); WHITE BLOOD COUNT 8.2 K/mm3 (4.0-10.0)
[2023-07-03 16:25] LABS: INR 1.1 (0.83-1.09); PROTHROMBIN TIME (PATIENT) 12.8 SEC (9.7-13.0)
[2023-07-03 16:27] LABS: ACTIVATED PTT 36.4 SECONDS (25.2-36.5)
[2023-07-03 16:33] LABS: N-TERMINAL BNP 75.6 pg/ml (5-125)
[2023-07-03 16:44] LABS: CALCIUM 9.1 mg/dL (8.5-10.1)
[2023-07-03 16:45] LABS: ALBUMIN 3.3 g/dl (3.4-5.0); MAGNESIUM 2.1 mg/dL (1.8-2.4)
[2023-07-03 16:48] LABS: CREATININE 1.2 mg/dL (0.55-1.3)
[2023-07-03 16:49] LABS: BILIRUBIN,TOTAL 0.4 mg/dL (0.2-1)
[2023-07-03 19:42] LABS: EPI CELLS 6 /uL (0-25.1); HYALINE CASTS 0 /uL (0-3.1); URINE APPEARANCE Error; URINE BACTERIA 7 /uL (0-1359); URINE BILIRUBIN NEGATIVE (NEGATIVE); URINE COLOR YELLOW; URINE GLUCOSE (UA) NEGATIVE (NEGATIVE); URINE KETONE NEGATIVE (NEGATIVE); URINE LEUK ESTERASE NEGATIVE (NEGATIVE); URINE NITRITE NEGATIVE (NEGATIVE); URINE PROTEIN 2+ (NEGATIVE); URINE RBC 17 /uL (0-23.9); URINE WBC 24 /uL (0-25.8)
[2023-07-04 03:14] VITALS: BMI 36.2
[2023-07-04 09:24] LABS: BASO % 0.7 % (0-2.0); EOS % 4.2 % (0-4.5); HEMATOCRIT 33.3 % (35.4-49); HEMOGLOBIN 11.6 GM/dL (11.7-16.9); MCH 29.9 pg (25.7-33.7); MCHC 34.9 g/dl (32.0-35.9); MEAN CELL VOLUME 85.8 fl (80-96); MEAN PLT VOLUME 8.2 fl (7.5-11.1); MONO % 7.4 % (3.8-10.2); NEUT % 52.7 % (42.8-82.8); PLATELET COUNT 246 10^3/uL (134-434); RBC 3.88 M/mm3 (4.00-5.60); RDW 14.8 % (11.9-15.9); WHITE BLOOD COUNT 7.2 K/mm3 (4.0-10.0)
[2023-07-04] MEDS ORDERED: FUROSEMIDE 40 MG TABLET (FP) PO SCH (10:00)
[2023-07-04 10:06] LABS: POTASSIUM 4.2 mmol/L (3.5-5.1)
[2023-07-04 10:14] LABS: CALCIUM 8.8 mg/dL (8.5-10.1)
[2023-07-04 10:15] LABS: BLOOD UREA NITROGEN 14.8 mg/dL (7-18)
[2023-07-04 10:18] LABS: BILIRUBIN,TOTAL 0.4 mg/dL (0.2-1); TOT PROT 6.2 g/dl (6.4-8.2)
[2023-07-04] MEDS: CLOPIDOGREL BISULFATE 75 MG TABLET (FP) PO SCH (10:18)
[2023-07-04] MEDS: DOCUSATE SODIUM 100 MG CAPSULE (FP) PO SCH (10:18)
[2023-07-04] MEDS: FLUoxetine HCL 20 MG CAPSULE PO SCH (10:18)
[2023-07-04] MEDS: FOLIC ACID 1 MG TABLET (FP) PO SCH (10:18)
[2023-07-04] MEDS: amLODIPine BESYLATE 5 MG TABLET (FP) PO SCH (10:18)
[2023-07-04] MEDS: LOSARTAN POTASSIUM 50 MG TABLET PO SCH (10:18)
[2023-07-04] MEDS: ASPIRIN 81 MG CHEWABLE TABLETS PO SCH (10:18)
[2023-07-04] MEDS: PANTOPRAZOLE 40 MG TABLET PO SCH (10:18)
[2023-07-04] MEDS: GABAPENTIN 100 MG CAPSULE PO SCH (10:18)
[2023-07-04] MEDS: VITAMIN B COMPLEX W/C COMBO TABLET (FP) PO SCH (10:50)
[2023-07-04] MEDS: FUROSEMIDE 40 MG/4 ML INJECTABLE VIAL IVPUSH SCH (14:55)
[2023-07-04] MEDS: TAMSULOSIN HCL 0.4 MG CAP PO SCH (17:20)
[2023-07-04] MEDS: ATORVASTATIN CA 40 MG TABLET (FP) PO SCH (23:26)
[2023-07-04] MEDS: BACLOFEN 10 MG TABLET (FP) PO SCH (23:26)
[2023-07-04] MEDS: CYCLOBENZAPRINE HCL 5 MG TABLET PO SCH (23:27)
[2023-07-04] MEDS: GABAPENTIN 300 MG CAPSULE PO SCH (23:27)
[2023-07-04] MEDS: INSULIN (LEVEMIR) 100 UNITS/ML UNITS SQ SCH (23:28)
[2023-07-06 08:23] LABS: POTASSIUM 4.1 mmol/L (3.5-5.1)
[2023-07-06 08:27] LABS: CALCIUM 8.5 mg/dL (8.5-10.1)
[2023-07-06 08:28] LABS: BLOOD UREA NITROGEN 19.9 mg/dL (7-18); MAGNESIUM 2.2 mg/dL (1.8-2.4)
[2023-07-06 08:29] LABS: BASO % 0.8 % (0-2.0); EOS % 4.9 % (0-4.5); HEMATOCRIT 35.2 % (35.4-49); HEMOGLOBIN 12.2 GM/dL (11.7-16.9); MCH 29.9 pg (25.7-33.7); MCHC 34.7 g/dl (32.0-35.9); MEAN CELL VOLUME 86.1 fl (80-96); MEAN PLT VOLUME 8.1 fl (7.5-11.1); MONO % 7.3 % (3.8-10.2); PLATELET COUNT 246 10^3/uL (134-434); RBC 4.08 M/mm3 (4.00-5.60); RDW 13.9 % (11.9-15.9); WHITE BLOOD COUNT 7.2 K/mm3 (4.0-10.0)
[2023-07-06 08:31] LABS: CREATININE 1.2 mg/dL (0.55-1.3)
[2023-07-06 08:32] LABS: BILIRUBIN,TOTAL 0.4 mg/dL (0.2-1); TOT PROT 6.6 g/dl (6.4-8.2)
[2023-07-06 09:42] LABS: N-TERMINAL BNP 109.3 pg/ml (5-125)
[2023-07-06] MEDS: INSULIN ASPART SLIDING SCALE (NOVOLOG) 1 VIAL SQ SCH (11:47)
[2023-07-07] MEDS: FUROSEMIDE 40 MG TABLET (FP) PO SCH (15:22)
[2023-07-07 15:45] VITALS: BP 129/72; PULSE 93; RESP 20; TEMP 98.4
== END 2023-07-07 15:45 | disposition home health service (06) | DRG 641 ==
LOC: JER 12:34 → JERBED 19:59 → OBSVTOIN 19:59 → J8W 23:35
PROVIDERS: ADMIT Internal Medicine; ATTEND Family Medicine
DX: E87.70 Fluid overload, unspecified (principal); I13.0 Hypertensive heart and chronic kidney disease with heart failure and stage 1 through stage 4 chronic kidney disease, or unspecified chronic kidney disease; I50.32 Chronic diastolic (congestive) heart failure; I69.351 Hemiplegia and hemiparesis following cerebral infarction affecting right dominant side; E11.9 Type 2 diabetes mellitus without complications; N18.30 Chronic kidney disease, stage 3 unspecified; R06.00 Dyspnea, unspecified; Z91.148 Patient's other noncompliance with medication regimen for other reason; E66.9 Obesity, unspecified; Z68.35 Body mass index [BMI] 35.0-35.9, adult
CPT/HCPCS: 0241U-QW; 36415; 71045-TC-FY; 80048; 80053; 81003; 82962; 83735; 83880; 84484; 85025; 85610; 85730; 86850; 86900; 86901; 87086; 93005; 93010; 93971-TC; 97116-GP; 97161-GP; 99285-25; J0475

== ENCOUNTER 2023-09-17 16:58 | Inpatient (IN) | payer OTHER ==
[2023-09-17] MEDS ORDERED: FUROSEMIDE 40 MG/4 ML INJECTABLE VIAL ONE (18:01)
[2023-09-17] MEDS: FUROSEMIDE 40 MG/4 ML INJECTABLE VIAL IVPUSH ONE (18:38)
[2023-09-17 18:41] LABS: BASO % 1.1 % (0-2.0); EOS % 11.2 % (0-4.5); HEMATOCRIT 35.9 % (35.4-49); HEMOGLOBIN 12.3 GM/dL (11.7-16.9); LYMPH % 41.1 % (8-40); MCH 29.6 pg (25.7-33.7); MCHC 34.4 g/dl (32.0-35.9); MEAN CELL VOLUME 86.1 fl (80-96); MEAN PLT VOLUME 7.6 fl (7.5-11.1); NEUT % 39.6 % (42.8-82.8); PLATELET COUNT 229 10^3/uL (134-434); RBC 4.17 M/mm3 (4.00-5.60); RDW 14.4 % (11.9-15.9); WHITE BLOOD COUNT 8.1 K/mm3 (4.0-10.0)
[2023-09-17 19:07] LABS: POTASSIUM 4.7 mmol/L (3.5-5.1)
[2023-09-17 19:10] LABS: ALBUMIN 3.6 g/dl (3.4-5.0); CALCIUM 9.1 mg/dL (8.5-10.1)
[2023-09-17 19:11] LABS: BLOOD UREA NITROGEN 20.4 mg/dL (7-18)
[2023-09-17 19:13] LABS: CREATININE 1.7 mg/dL (0.55-1.3)
[2023-09-17 19:14] LABS: BILIRUBIN,TOTAL 0.4 mg/dL (0.2-1); TOT PROT 7.7 g/dl (6.4-8.2)
[2023-09-17 19:18] LABS: N-TERMINAL BNP 152.4 pg/ml (5-125)
[2023-09-17] MEDS ORDERED: amLODIPine BESYLATE 5 MG TABLET (FP) ONE (21:52)
[2023-09-17] MEDS ORDERED: ATORVASTATIN CA 40 MG TABLET (FP) ONE (21:52)
[2023-09-17] MEDS ORDERED: HEPARIN NA (PORCINE) 5,000 UNITS/ML 1ML VIAL ONE (21:53)
[2023-09-17] MEDS ORDERED: INSULIN (NOVOLOG) ASPART 100 UNITS/ML 10ML VIAL ONE ×3 (21:59→22:49)
[2023-09-17 22:52] LABS: PH,URINE 5.5 (5.0-8.0); URINE APPEARANCE CLEAR; URINE BILIRUBIN NEGATIVE (NEGATIVE); URINE COLOR YELLOW; URINE GLUCOSE (UA) NEGATIVE (NEGATIVE); URINE KETONE NEGATIVE (NEGATIVE); URINE LEUK ESTERASE NEGATIVE (NEGATIVE); URINE NITRITE NEGATIVE (NEGATIVE); URINE PROTEIN TRACE (NEGATIVE); URINE UROBILINOGEN 0.2 mg/dL (0.2-1.0)
[2023-09-17] MEDS: ATORVASTATIN CA 40 MG TABLET (FP) PO SCH (23:09)
[2023-09-17] MEDS: amLODIPine BESYLATE 5 MG TABLET (FP) PO SCH (23:09)
[2023-09-17] MEDS: HEPARIN NA (PORCINE) 5,000 UNITS/ML 1ML VIAL SQ SCH (23:09)
[2023-09-17] MEDS: INSULIN ASPART SLIDING SCALE (NOVOLOG) 1 VIAL SQ SCH (23:09)
[2023-09-17] MEDS ORDERED: ALBUTEROL SO4 2.5/IPRATROPIUM 0.5 INH SOL 3 ML VIAL.NEB. NEB ONE (23:35)
[2023-09-17] MEDS: ALBUTEROL SO4 2.5/IPRATROPIUM 0.5 INH SOL 3 ML VIAL.NEB. NEB PRN (23:39)
[2023-09-18] MEDS: FUROSEMIDE 40 MG TABLET (FP) PO SCH (06:41)
[2023-09-18] MEDS ORDERED: INSULIN (NOVOLOG) ASPART 100 UNITS/ML 10ML VIAL ONE ×3 (06:46→22:02)
[2023-09-18 08:18] LABS: HEMATOCRIT 33.8 % (35.4-49); HEMOGLOBIN 11.5 GM/dL (11.7-16.9); LYMPH % 39.6 % (8-40); MCH 29.2 pg (25.7-33.7); MEAN CELL VOLUME 85.9 fl (80-96); MONO % 7.3 % (3.8-10.2); NEUT % 39.1 % (42.8-82.8); PLATELET COUNT 218 10^3/uL (134-434); RBC 3.93 M/mm3 (4.00-5.60); WHITE BLOOD COUNT 7.9 K/mm3 (4.0-10.0)
[2023-09-18 08:30] LABS: INR 1.11 (0.83-1.09); PROTHROMBIN TIME (PATIENT) 12.5 SEC (9.7-13.0)
[2023-09-18 08:51] LABS: CALCIUM 9.2 mg/dL (8.5-10.1)
[2023-09-18 08:52] LABS: ALBUMIN 3.3 g/dl (3.4-5.0); MAGNESIUM 2.3 mg/dL (1.8-2.4)
[2023-09-18 08:55] LABS: CREATININE 1.7 mg/dL (0.55-1.3); PHOSPHOROUS 3.8 mg/dL (2.5-4.9)
[2023-09-18 08:56] LABS: BILIRUBIN,TOTAL 0.5 mg/dL (0.2-1); TOT PROT 7.1 g/dl (6.4-8.2)
[2023-09-18 09:07] LABS: POTASSIUM 4.3 mmol/L (3.5-5.1)
[2023-09-18] MEDS: TAMSULOSIN HCL 0.4 MG CAP PO SCH (10:58)
[2023-09-18] MEDS: CLOPIDOGREL BISULFATE 75 MG TABLET (FP) PO SCH (10:59)
[2023-09-18] MEDS: METOLAZONE 2.5 MG TABLET (FP) PO SCH ×2 (11:06→13:23)
[2023-09-19] MEDS ORDERED: INSULIN (NOVOLOG) ASPART 100 UNITS/ML 10ML VIAL ONE (11:43)
[2023-09-19 17:05] LABS: CALCIUM 9.1 mg/dL (8.5-10.1)
[2023-09-19 17:06] LABS: BLOOD UREA NITROGEN 29.8 mg/dL (7-18)
[2023-09-19 17:09] LABS: CREATININE 1.8 mg/dL (0.55-1.3)
[2023-09-20 06:52] VITALS: RESP 18
[2023-09-20 09:44] LABS: POTASSIUM 4.2 mmol/L (3.5-5.1)
[2023-09-20 09:46] LABS: CALCIUM 9.4 mg/dL (8.5-10.1)
[2023-09-20 09:47] LABS: BLOOD UREA NITROGEN 28.7 mg/dL (7-18)
[2023-09-20 09:50] LABS: CREATININE 1.8 mg/dL (0.55-1.3)
[2023-09-20 13:40] VITALS: BP 142/81; PULSE 79; TEMP 98.6
[2023-09-21 23:31] VITALS: BMI 39.2
== END 2023-09-20 15:30 | disposition home or self-care (01) | DRG 641 ==
LOC: JER 16:58 → JERBED 19:23 → J4W 09-18 00:18
PROVIDERS: ADMIT Internal Medicine; ATTEND Family Medicine
DX: E87.70 Fluid overload, unspecified (principal); I13.0 Hypertensive heart and chronic kidney disease with heart failure and stage 1 through stage 4 chronic kidney disease, or unspecified chronic kidney disease; I50.32 Chronic diastolic (congestive) heart failure; N18.30 Chronic kidney disease, stage 3 unspecified; E66.9 Obesity, unspecified; Z68.39 Body mass index [BMI] 39.0-39.9, adult
CPT/HCPCS: 0241U-QW; 36415; 71045-TC-FY; 71250-TC; 80048; 80053; 81003; 82043; 82570; 82962; 83735; 83880; 84100; 84156; 84300; 84443; 84484; 85025; 85610; 93005; 93010; 94640; 97116-GP; 97161-GP; 99285-25; J1644

== ENCOUNTER 2023-11-27 15:49 | Inpatient (IN) | payer OTHER ==
[2023-11-27] MEDS ORDERED: FUROSEMIDE 40 MG/4 ML INJECTABLE VIAL ONE (19:32)
[2023-11-27] MEDS: FUROSEMIDE 40 MG/4 ML INJECTABLE VIAL IVPUSH ONE (19:40)
[2023-11-27 19:42] LABS: POTASSIUM 3.9 mmol/L (3.5-5.1)
[2023-11-27 19:44] LABS: BLOOD UREA NITROGEN 41.7 mg/dL (7-18); CALCIUM 8.8 mg/dL (8.5-10.1)
[2023-11-27 19:45] LABS: ALBUMIN 3.5 g/dl (3.4-5.0); BASO % 0.3 % (0-2.0); EOS % 3.2 % (0-4.5); HEMATOCRIT 35.4 % (35.4-49); HEMOGLOBIN 12.3 GM/dL (11.7-16.9); LYMPH % 30.5 % (8-40); MAGNESIUM 2.4 mg/dL (1.8-2.4); MCH 29.1 pg (25.7-33.7); MCHC 34.8 g/dl (32.0-35.9); MEAN CELL VOLUME 83.7 fl (80-96); MEAN PLT VOLUME 8.4 fl (7.5-11.1); MONO % 7.1 % (3.8-10.2); NEUT % 58.9 % (42.8-82.8); PLATELET COUNT 256 10^3/uL (134-434); RBC 4.23 M/mm3 (4.00-5.60); RDW 14.2 % (11.9-15.9); WHITE BLOOD COUNT 9.6 K/mm3 (4.0-10.0)
[2023-11-27 19:48] LABS: CREATININE 1.8 mg/dL (0.55-1.3)
[2023-11-27 19:49] LABS: BILIRUBIN,TOTAL 0.4 mg/dL (0.2-1); TOT PROT 7.3 g/dl (6.4-8.2)
[2023-11-27 19:53] LABS: N-TERMINAL BNP 63.8 pg/ml (5-125)
[2023-11-27] MEDS ORDERED: POLYETHYLENE GLYCOL (HEALTHYLAX) 3350 17 GM PACKET ONE (20:18)
[2023-11-27] MEDS: POLYETHYLENE GLYCOL (HEALTHYLAX) 3350 17 GM PACKET PO ONE (20:35)
[2023-11-27] MEDS: FUROSEMIDE 40 MG TABLET (FP) PO ONE (20:36)
[2023-11-28] MEDS ORDERED: HEPARIN NA (PORCINE) 5,000 UNITS/ML 1ML VIAL ONE (00:45)
[2023-11-28] MEDS ORDERED: GABAPENTIN 300 MG CAPSULE ONE (00:45)
[2023-11-28] MEDS ORDERED: ATORVASTATIN CA 40 MG TABLET (FP) ONE (00:45)
[2023-11-28] MEDS: INSULIN (NOVOLOG) ASPART 100 UNITS/ML 10ML VIAL SQ SCH (00:59)
[2023-11-28] MEDS ORDERED: INSULIN ASPART SLIDING SCALE (NOVOLOG) 1 VIAL SQ ONE ×2 (01:00→06:37)
[2023-11-28] MEDS: HEPARIN NA (PORCINE) 5,000 UNITS/ML 1ML VIAL SQ SCH (01:01)
[2023-11-28] MEDS: GABAPENTIN 300 MG CAPSULE PO SCH ×2 (01:01→22:44)
[2023-11-28] MEDS: ATORVASTATIN CA 40 MG TABLET (FP) PO SCH (01:01)
[2023-11-28] MEDS ORDERED: FUROSEMIDE 40 MG/4 ML INJECTABLE VIAL ONE (06:37)
[2023-11-28] MEDS: FUROSEMIDE 40 MG/4 ML INJECTABLE VIAL IVPUSH SCH (06:39)
[2023-11-28 08:19] LABS: BASO % 0.6 % (0-2.0); EOS % 3.4 % (0-4.5); HEMATOCRIT 34.8 % (35.4-49); HEMOGLOBIN 12.1 GM/dL (11.7-16.9); LYMPH % 35.4 % (8-40); MCH 29.6 pg (25.7-33.7); MCHC 34.7 g/dl (32.0-35.9); MEAN CELL VOLUME 85.4 fl (80-96); MEAN PLT VOLUME 8.6 fl (7.5-11.1); MONO % 6.6 % (3.8-10.2); PLATELET COUNT 251 10^3/uL (134-434); RBC 4.07 M/mm3 (4.00-5.60); WHITE BLOOD COUNT 8.8 K/mm3 (4.0-10.0)
[2023-11-28 08:30] LABS: POTASSIUM 3.8 mmol/L (3.5-5.1)
[2023-11-28 08:36] LABS: BLOOD UREA NITROGEN 40.1 mg/dL (7-18); CALCIUM 8.8 mg/dL (8.5-10.1)
[2023-11-28 08:37] LABS: ALBUMIN 3.3 g/dl (3.4-5.0)
[2023-11-28 08:39] LABS: CREATININE 1.7 mg/dL (0.55-1.3)
[2023-11-28 08:41] LABS: BILIRUBIN,TOTAL 0.4 mg/dL (0.2-1); TOT PROT 7.1 g/dl (6.4-8.2)
[2023-11-28] MEDS: CLOPIDOGREL BISULFATE 75 MG TABLET (FP) PO SCH (11:17)
[2023-11-28] MEDS: BACLOFEN 10 MG TABLET (FP) PO SCH (11:17)
[2023-11-28] MEDS: TAMSULOSIN HCL 0.4 MG CAP PO SCH (11:17)
[2023-11-28] MEDS: PANTOPRAZOLE 40 MG TABLET PO SCH (11:17)
[2023-11-28] MEDS: FLUoxetine HCL 20 MG CAPSULE PO SCH (11:17)
[2023-11-28] MEDS: LOSARTAN POTASSIUM 50 MG TABLET PO SCH (11:18)
[2023-11-28] MEDS: POLYETHYLENE GLYCOL (HEALTHYLAX) 3350 17 GM PACKET PO SCH (13:42)
[2023-11-29] MEDS: INSULIN (LEVEMIR) 100 UNITS/ML UNITS SQ SCH (21:39)
[2023-11-30 13:11] VITALS: BMI 37.5
[2023-12-01] MEDS ORDERED: INSULIN ASPART SLIDING SCALE (NOVOLOG) 1 VIAL SQ ONE (06:41)
[2023-12-01] MEDS: MECLIZINE HCL 12.5 MG TABLET PO SCH (12:46)
[2023-12-01] MEDS: GABAPENTIN 300 MG CAPSULE PO SCH (12:47)
[2023-12-01] MEDS: FUROSEMIDE 40 MG/4 ML INJECTABLE VIAL IVPUSH SCH (14:19)
[2023-12-01 18:59] LABS: BASO % 0.5 % (0-2.0); EOS % 3.5 % (0-4.5); HEMATOCRIT 35.8 % (35.4-49); HEMOGLOBIN 12.3 GM/dL (11.7-16.9); LYMPH % 37.2 % (8-40); MCH 29.6 pg (25.7-33.7); MCHC 34.4 g/dl (32.0-35.9); MEAN PLT VOLUME 8.1 fl (7.5-11.1); MONO % 5.8 % (3.8-10.2); PLATELET COUNT 265 10^3/uL (134-434); RBC 4.16 M/mm3 (4.00-5.60); RDW 13.8 % (11.9-15.9); WHITE BLOOD COUNT 8.7 K/mm3 (4.0-10.0)
[2023-12-01 19:14] LABS: POTASSIUM 3.7 mmol/L (3.5-5.1)
[2023-12-01 19:17] LABS: ALBUMIN 3.3 g/dl (3.4-5.0); BLOOD UREA NITROGEN 29.6 mg/dL (7-18)
[2023-12-01 19:19] LABS: CALCIUM 8.8 mg/dL (8.5-10.1)
[2023-12-01 19:20] LABS: CREATININE 1.7 mg/dL (0.55-1.3)
[2023-12-01 19:21] LABS: BILIRUBIN,TOTAL 0.3 mg/dL (0.2-1)
[2023-12-01] MEDS: POTASSIUM CHLORIDE TABS 20 MEQ TABLET.ER (FP) PO SCH (21:29)
[2023-12-01] MEDS: INSULIN (LEVEMIR) 100 UNITS/ML UNITS SQ SCH (21:30)
[2023-12-02] MEDS ORDERED: INSULIN ASPART SLIDING SCALE (NOVOLOG) 1 VIAL SQ ONE (06:46)
[2023-12-02] MEDS: INSULIN (LEVEMIR) 100 UNITS/ML UNITS SQ SCH (06:48)
[2023-12-02 08:53] LABS: POTASSIUM 4.2 mmol/L (3.5-5.1)
[2023-12-02 09:01] LABS: CALCIUM 8.8 mg/dL (8.5-10.1)
[2023-12-02 09:02] LABS: ALBUMIN 3.4 g/dl (3.4-5.0); BLOOD UREA NITROGEN 28.6 mg/dL (7-18)
[2023-12-02 09:05] LABS: CREATININE 1.6 mg/dL (0.55-1.3)
[2023-12-02 09:07] LABS: BILIRUBIN,TOTAL 0.4 mg/dL (0.2-1); TOT PROT 7.4 g/dl (6.4-8.2)
[2023-12-03 02:16] VITALS: RESP 20
[2023-12-03] MEDS ORDERED: INSULIN (LEVEMIR) 100 UNITS/ML UNITS SQ SCH (07:01)
[2023-12-03] MEDS ORDERED: INSULIN ASPART SLIDING SCALE (NOVOLOG) 1 VIAL SQ ONE (08:24)
[2023-12-03] MEDS ORDERED: INSULIN (LEVEMIR) 100 UNITS/ML UNITS SQ ONE (08:24)
[2023-12-03 17:08] VITALS: BP 112/75; PULSE 95; TEMP 97.7
== END 2023-12-03 18:06 | disposition home health service (06) | DRG 291 ==
LOC: JER 15:49 → JERBED 16:50 → J4W 11-28 09:51
PROVIDERS: ADMIT Family Medicine; ATTEND Family Medicine
DX: I13.0 Hypertensive heart and chronic kidney disease with heart failure and stage 1 through stage 4 chronic kidney disease, or unspecified chronic kidney disease (principal); I50.33 Acute on chronic diastolic (congestive) heart failure; N18.9 Chronic kidney disease, unspecified; E78.5 Hyperlipidemia, unspecified; E87.70 Fluid overload, unspecified; E11.22 Type 2 diabetes mellitus with diabetic chronic kidney disease; R14.0 Abdominal distension (gaseous); N40.0 Benign prostatic hyperplasia without lower urinary tract symptoms; E66.9 Obesity, unspecified; Z68.35 Body mass index [BMI] 35.0-35.9, adult
CPT/HCPCS: 36415; 71045-TC-FY; 76700-TC; 80053; 80061; 82962; 83036; 83735; 83880; 84443; 84484; 85025; 93005; 93010; 93306-TC; 93970-TC; 97116-GP; 97162-GP; 99285-25; J0475; J1644

== ENCOUNTER 2024-01-16 14:00 | Emergency (ER) | payer OTHER ==
[2024-01-16 14:25] VITALS: BP 121/78; PULSE 91; RESP 24; TEMP 98.7; BMI 33.5
== END 2024-01-16 15:36 | disposition home or self-care (01) ==
LOC: JER 14:00
DX: M79.89 Other specified soft tissue disorders (principal); R60.0 Localized edema
CPT/HCPCS: 99283-25

== ENCOUNTER 2024-02-12 17:23 | Inpatient (IN) | payer OTHER ==
[2024-02-12 17:48] VITALS: BMI 40.6
[2024-02-12 18:44] LABS: BASO % 0.6 % (0-2.0); EOS % 1.3 % (0-4.5); HEMATOCRIT 37.6 % (35.4-49); HEMOGLOBIN 12.9 GM/dL (11.7-16.9); MCH 29.2 pg (25.7-33.7); MCHC 34.2 g/dl (32.0-35.9); MEAN CELL VOLUME 85.2 fl (80-96); MEAN PLT VOLUME 8.5 fl (7.5-11.1); MONO % 7.3 % (3.8-10.2); NEUT % 68.8 % (42.8-82.8); PLATELET COUNT 258 10^3/uL (134-434); RBC 4.41 M/mm3 (4.00-5.60); RDW 13.7 % (11.9-15.9); WHITE BLOOD COUNT 10.4 K/mm3 (4.0-10.0)
[2024-02-12] MEDS ORDERED: morphine SULFATE 4 MG/ML VIAL ONE (18:46)
[2024-02-12] MEDS: morphine CARPU-JECT 2 MG/1 ML DISP.SYRIN IVPUSH ONE (18:52)
[2024-02-12 19:19] LABS: CALCIUM 9.5 mg/dL (8.5-10.1)
[2024-02-12 19:20] LABS: ALBUMIN 3.8 g/dl (3.4-5.0); BLOOD UREA NITROGEN 24.7 mg/dL (7-18)
[2024-02-12 19:23] LABS: CREATININE 1.7 mg/dL (0.55-1.3)
[2024-02-12 19:25] LABS: BILIRUBIN,TOTAL 0.4 mg/dL (0.2-1); TOT PROT 7.6 g/dl (6.4-8.2)
[2024-02-12 19:28] LABS: N-TERMINAL BNP 141.6 pg/ml (5-125)
[2024-02-12] MEDS ORDERED: LIDOCAINE HCL 2% JELLY 11 ML TP ONE (19:32)
[2024-02-12] MEDS ORDERED: FUROSEMIDE 40 MG/4 ML INJECTABLE VIAL ONE (19:33)
[2024-02-12] MEDS: FUROSEMIDE 40 MG/4 ML INJECTABLE VIAL IVPUSH ONE (19:57)
[2024-02-12 20:15] LABS: PH,URINE 5.5 (5.0-8.0); URINE APPEARANCE CLEAR; URINE BILIRUBIN NEGATIVE (NEGATIVE); URINE COLOR YELLOW; URINE GLUCOSE (UA) 2+ (NEGATIVE); URINE KETONE NEGATIVE (NEGATIVE); URINE LEUK ESTERASE NEGATIVE (NEGATIVE); URINE NITRITE NEGATIVE (NEGATIVE); URINE PROTEIN 2+ (NEGATIVE); URINE UROBILINOGEN 0.2 mg/dL (0.2-1.0)
[2024-02-12 20:33] LABS: EPI CELLS 10.9 /uL (0-25.1); HYALINE CASTS 0.14 /uL (0-3.1); URINE BACTERIA 1.8 /uL (0-1359); URINE RBC 30.6 /uL (0-23.9)
[2024-02-12] MEDS: traMADol HCL 50 MG TABLET PO ONE (23:33)
[2024-02-13] MEDS ORDERED: ALBUTEROL SO4 HFA INHALER IH PRN (03:34)
[2024-02-13] MEDS ORDERED: MECLIZINE HCL 12.5 MG TABLET PO PRN (03:34)
[2024-02-13] MEDS ORDERED: ACETAMINOPHEN 325 MG TABLET (FP) PO PRN (03:37)
[2024-02-13] MEDS: PANTOPRAZOLE 40 MG TABLET PO SCH (06:04)
[2024-02-13] MEDS: FUROSEMIDE 40 MG/4 ML INJECTABLE VIAL IVPUSH SCH (06:05)
[2024-02-13] MEDS: POTASSIUM CHLORIDE TABS 20 MEQ TABLET.ER (FP) PO SCH (10:27)
[2024-02-13] MEDS: FLUoxetine HCL 20 MG CAPSULE PO SCH (10:27)
[2024-02-13] MEDS: CLOPIDOGREL BISULFATE 75 MG TABLET (FP) PO SCH (10:27)
[2024-02-13] MEDS: LIDOCAINE 5% TOPICAL PATCH TP SCH (10:27)
[2024-02-13] MEDS: DOCUSATE SODIUM 100 MG CAPSULE (FP) PO SCH (10:27)
[2024-02-13 12:43] LABS: BASO % 0.7 % (0-2.0); EOS % 1.4 % (0-4.5); HEMATOCRIT 33.9 % (35.4-49); HEMOGLOBIN 11.5 GM/dL (11.7-16.9); MCH 29.2 pg (25.7-33.7); MCHC 33.9 g/dl (32.0-35.9); MEAN PLT VOLUME 8.8 fl (7.5-11.1); MONO % 9.1 % (3.8-10.2); NEUT % 52.8 % (42.8-82.8); PLATELET COUNT 216 10^3/uL (134-434); RBC 3.95 M/mm3 (4.00-5.60); RDW 13.9 % (11.9-15.9); WHITE BLOOD COUNT 8.7 K/mm3 (4.0-10.0)
[2024-02-13 13:06] LABS: POTASSIUM 4.1 mmol/L (3.5-5.1)
[2024-02-13 13:10] LABS: CREATININE 1.6 mg/dL (0.55-1.3)
[2024-02-13 13:11] LABS: PHOSPHOROUS 3.6 mg/dL (2.5-4.9)
[2024-02-13] MEDS: INSULIN ASPART SLIDING SCALE (NOVOLOG) 1 VIAL SQ SCH (16:31)
[2024-02-13] MEDS: LIDOCAINE PATCH REMOVAL MC SCH (21:38)
[2024-02-13] MEDS: GABAPENTIN 300 MG CAPSULE PO SCH (21:38)
[2024-02-13] MEDS: POLYETHYLENE GLYCOL (HEALTHYLAX) 3350 17 GM PACKET PO SCH (21:38)
[2024-02-13] MEDS: HEPARIN NA (PORCINE) 5,000 UNITS/ML 1ML VIAL SQ SCH (21:38)
[2024-02-13] MEDS: ATORVASTATIN CA 40 MG TABLET (FP) PO SCH (21:38)
[2024-02-15 08:19] LABS: BASO % 0.5 % (0-2.0); EOS % 3.3 % (0-4.5); HEMATOCRIT 33.8 % (35.4-49); HEMOGLOBIN 11.7 GM/dL (11.7-16.9); LYMPH % 43.1 % (8-40); MCH 29.3 pg (25.7-33.7); MCHC 34.5 g/dl (32.0-35.9); MEAN CELL VOLUME 85.1 fl (80-96); MEAN PLT VOLUME 8.6 fl (7.5-11.1); MONO % 8.2 % (3.8-10.2); NEUT % 44.9 % (42.8-82.8); PLATELET COUNT 228 10^3/uL (134-434); RBC 3.98 M/mm3 (4.00-5.60); RDW 13.8 % (11.9-15.9); WHITE BLOOD COUNT 8.2 K/mm3 (4.0-10.0)
[2024-02-15 08:49] LABS: BLOOD UREA NITROGEN 20.8 mg/dL (7-18)
[2024-02-15 08:53] LABS: CREATININE 1.4 mg/dL (0.55-1.3)
[2024-02-15 08:54] LABS: BILIRUBIN,TOTAL 0.5 mg/dL (0.2-1); TOT PROT 6.4 g/dl (6.4-8.2)
[2024-02-17 08:31] VITALS: RESP 20
[2024-02-17] MEDS ORDERED: INSULIN ASPART SLIDING SCALE (NOVOLOG) 1 VIAL SQ ONE ×2 (08:41→21:59)
[2024-02-17] MEDS: TAMSULOSIN HCL 0.4 MG CAP PO SCH (09:55)
[2024-02-17] MEDS: INSULIN (LEVEMIR) 100 UNITS/ML UNITS SQ SCH (10:11)
[2024-02-17] MEDS: TORSEMIDE 20 MG TABLET (FP) PO SCH (17:05)
[2024-02-18 06:38] VITALS: PULSE 88
[2024-02-18 11:22] VITALS: BP 125/70; TEMP 97.3
== END 2024-02-18 15:03 | disposition home or self-care (01) | DRG 291 ==
LOC: JER 17:23 → JERBED 19:36 → J4W 23:07
PROVIDERS: ADMIT Internal Medicine; ATTEND Family Medicine
DX: I13.0 Hypertensive heart and chronic kidney disease with heart failure and stage 1 through stage 4 chronic kidney disease, or unspecified chronic kidney disease (principal); I50.33 Acute on chronic diastolic (congestive) heart failure; N18.9 Chronic kidney disease, unspecified; E11.22 Type 2 diabetes mellitus with diabetic chronic kidney disease; E78.5 Hyperlipidemia, unspecified; F32.A Depression, unspecified; M54.50 Low back pain, unspecified; G47.30 Sleep apnea, unspecified; N40.0 Benign prostatic hyperplasia without lower urinary tract symptoms; K59.00 Constipation, unspecified; R60.0 Localized edema; R42 Dizziness and giddiness; R14.0 Abdominal distension (gaseous); Z86.73 Personal history of transient ischemic attack (TIA), and cerebral infarction without residual deficits
CPT/HCPCS: 0241U-QW; 36415; 70450-TC; 71045-TC-FY; 74019-TC-FY; 76700-TC; 80048; 80053; 81003; 82962; 83880; 84100; 84484; 85025; 85379; 87086; 93005; 93010; 97116-GP; 97162-GP; 99285-25; J1644

== ENCOUNTER 2024-05-21 16:51 | Observation (INO) | payer OTHER ==
[2024-05-21 18:03] LABS: VENOUS BASE EXCESS 0.3 mmol/L (-2-2); VENOUS O2 SATURATION 73.5 % (70-80); VENOUS PCO2 46.4 mmHg (38-52); VENOUS PH 7.368 (7.310-7.410)
[2024-05-21 18:15] LABS: BASO % 0.9 % (0-2.0); EOS % 2.2 % (0-4.5); HEMATOCRIT 39.5 % (35.4-49); LYMPH % 37.8 % (8-40); MCHC 32.9 g/dl (32.0-35.9); MEAN CELL VOLUME 85.1 fl (80-96); MEAN PLT VOLUME 8.1 fl (7.5-11.1); MONO % 6.1 % (3.8-10.2); PLATELET COUNT 267 10^3/uL (134-434); RBC 4.64 M/mm3 (4.00-5.60); RDW 13.9 % (11.9-15.9); WHITE BLOOD COUNT 9.5 K/mm3 (4.0-10.0)
[2024-05-21 18:31] LABS: POTASSIUM 4.3 mmol/L (3.5-5.1)
[2024-05-21 18:33] LABS: ALBUMIN 3.5 g/dl (3.4-5.0); BLOOD UREA NITROGEN 21.3 mg/dL (7-18); CALCIUM 9.5 mg/dL (8.5-10.1)
[2024-05-21 18:36] LABS: CREATININE 1.4 mg/dL (0.55-1.3)
[2024-05-21 18:38] LABS: BILIRUBIN,TOTAL 0.3 mg/dL (0.2-1); TOT PROT 7.2 g/dl (6.4-8.2)
[2024-05-21 18:41] LABS: N-TERMINAL BNP 94.3 pg/ml (5-125)
[2024-05-21] MEDS ORDERED: DOCUSATE SODIUM 100 MG CAPSULE (FP) PO PRN (22:12)
[2024-05-21] MEDS ORDERED: ACETAMINOPHEN 500 MG TABLET (FP) PO PRN (22:12)
[2024-05-22 07:12] LABS: BASO % 0.8 % (0-2.0); EOS % 2.3 % (0-4.5); HEMATOCRIT 34.4 % (35.4-49); HEMOGLOBIN 11.5 GM/dL (11.7-16.9); LYMPH % 36.5 % (8-40); MCH 28.7 pg (25.7-33.7); MCHC 33.4 g/dl (32.0-35.9); MEAN CELL VOLUME 85.7 fl (80-96); MEAN PLT VOLUME 8.5 fl (7.5-11.1); NEUT % 54.4 % (42.8-82.8); PLATELET COUNT 240 10^3/uL (134-434); RBC 4.02 M/mm3 (4.00-5.60); RDW 14.2 % (11.9-15.9); WHITE BLOOD COUNT 9.3 K/mm3 (4.0-10.0)
[2024-05-22 07:18] VITALS: BMI 37.1
[2024-05-22 07:23] LABS: INR 1.06 (0.83-1.09); PROTHROMBIN TIME (PATIENT) 12.2 SEC (9.7-13.0)
[2024-05-22] MEDS ORDERED: INSULIN ASPART SLIDING SCALE (NOVOLOG) 1 VIAL SQ ONE (07:27)
[2024-05-22] MEDS: INSULIN ASPART SLIDING SCALE (NOVOLOG) 1 VIAL SQ SCH (07:28)
[2024-05-22 07:30] LABS: POTASSIUM 4.4 mmol/L (3.5-5.1)
[2024-05-22 07:35] LABS: CALCIUM 8.8 mg/dL (8.5-10.1)
[2024-05-22 07:39] LABS: CREATININE 1.3 mg/dL (0.55-1.3)
[2024-05-22 08:29] LABS: ACTIVATED PTT 33.9 SECONDS (25.2-36.5)
[2024-05-22] MEDS: FLUoxetine HCL 20 MG CAPSULE PO SCH (09:51)
[2024-05-22] MEDS: DOCUSATE SODIUM 100 MG CAPSULE (FP) PO SCH (09:51)
[2024-05-22] MEDS: TAMSULOSIN HCL 0.4 MG CAP PO SCH (09:51)
[2024-05-22] MEDS: CLOPIDOGREL BISULFATE 75 MG TABLET (FP) PO SCH (09:51)
[2024-05-22] MEDS: PANTOPRAZOLE 40 MG TABLET PO SCH (09:52)
[2024-05-22] MEDS: INSULIN (LEVEMIR) 100 UNITS/ML UNITS SQ SCH (21:45)
[2024-05-22] MEDS: GABAPENTIN 300 MG CAPSULE PO SCH (21:45)
[2024-05-22] MEDS: MELATONIN 5 MG TABLETS PO PRN (21:45)
[2024-05-22] MEDS: ATORVASTATIN CA 40 MG TABLET (FP) PO SCH (21:45)
[2024-05-23 07:40] LABS: BASO % 0.6 % (0-2.0); EOS % 3.4 % (0-4.5); HEMATOCRIT 34.6 % (35.4-49); HEMOGLOBIN 11.6 GM/dL (11.7-16.9); LYMPH % 38.2 % (8-40); MCH 28.8 pg (25.7-33.7); MCHC 33.6 g/dl (32.0-35.9); MEAN CELL VOLUME 85.7 fl (80-96); NEUT % 51.8 % (42.8-82.8); PLATELET COUNT 245 10^3/uL (134-434); RBC 4.04 M/mm3 (4.00-5.60); RDW 14.4 % (11.9-15.9); WHITE BLOOD COUNT 7.7 K/mm3 (4.0-10.0)
[2024-05-23 07:49] LABS: POTASSIUM 4.1 mmol/L (3.5-5.1)
[2024-05-23 07:53] LABS: CALCIUM 8.9 mg/dL (8.5-10.1)
[2024-05-23 07:54] LABS: ALBUMIN 2.9 g/dl (3.4-5.0); BLOOD UREA NITROGEN 15.6 mg/dL (7-18)
[2024-05-23 07:57] LABS: CREATININE 1.1 mg/dL (0.55-1.3)
[2024-05-23 07:59] LABS: BILIRUBIN,TOTAL 0.4 mg/dL (0.2-1); TOT PROT 5.9 g/dl (6.4-8.2)
[2024-05-23] MEDS: FUROSEMIDE 40 MG TABLET (FP) PO SCH (09:14)
[2024-05-23] MEDS ORDERED: INSULIN ASPART SLIDING SCALE (NOVOLOG) 1 VIAL SQ ONE ×2 (12:01→21:12)
[2024-05-24] MEDS: FUROSEMIDE 40 MG/4 ML INJECTABLE VIAL IVPUSH SCH (09:44)
[2024-05-24] MEDS: CEFAZOLIN 1 GM/D5W 1 GM/50 ML BAG IVPB SCH (10:41)
[2024-05-24] MEDS: CEFTRIAXONE 1 G/50 ML PREMIX 50 ML IVPB SCH (16:57)
[2024-05-24] MEDS ORDERED: DOCUSATE SODIUM 100 MG CAPSULE (FP) PO PRN (20:51)
[2024-05-24] MEDS ORDERED: ACETAMINOPHEN 500 MG TABLET (FP) PO PRN (20:51)
[2024-05-24] MEDS ORDERED: MELATONIN 5 MG TABLETS PO PRN (20:51)
[2024-05-24] MEDS: ATORVASTATIN CA 40 MG TABLET (FP) PO SCH (23:10)
[2024-05-24] MEDS: DOCUSATE SODIUM 100 MG CAPSULE (FP) PO SCH (23:10)
[2024-05-24] MEDS: GABAPENTIN 300 MG CAPSULE PO SCH (23:10)
[2024-05-24] MEDS: INSULIN (LEVEMIR) 100 UNITS/ML UNITS SQ SCH (23:10)
[2024-05-24] MEDS: INSULIN ASPART SLIDING SCALE (NOVOLOG) 1 VIAL SQ SCH (23:11)
[2024-05-25 02:35] VITALS: PULSE 92
[2024-05-25 04:30] VITALS: RESP 18
[2024-05-25] MEDS: TAMSULOSIN HCL 0.4 MG CAP PO SCH (09:58)
[2024-05-25] MEDS: PANTOPRAZOLE 40 MG TABLET PO SCH (09:58)
[2024-05-25] MEDS: CLOPIDOGREL BISULFATE 75 MG TABLET (FP) PO SCH (09:59)
[2024-05-25] MEDS: FLUoxetine HCL 20 MG CAPSULE PO SCH (09:59)
[2024-05-25 10:21] VITALS: BP 131/80; TEMP 97.8
== END 2024-05-25 11:35 | disposition home or self-care (01) ==
LOC: JER 16:51 → JERBED 20:54 → J4W 05-22 06:40 → J6W 05-24 21:08
PROVIDERS: ADMIT Internal Medicine; ATTEND Family Medicine
PROC: 3E03329 Introduction of Other Anti-infective into Peripheral Vein, Percutaneous Approach (ICD-10-PCS; principal; 2024-05-21)
PROC: 3E013VG Introduction of Insulin into Subcutaneous Tissue, Percutaneous Approach (ICD-10-PCS; 2024-05-21)
DX: L03.116 Cellulitis of left lower limb (principal); L03.115 Cellulitis of right lower limb; I11.0 Hypertensive heart disease with heart failure; E11.9 Type 2 diabetes mellitus without complications; J44.9 Chronic obstructive pulmonary disease, unspecified; N40.0 Benign prostatic hyperplasia without lower urinary tract symptoms; M54.50 Low back pain, unspecified; I89.0 Lymphedema, not elsewhere classified; R06.09 Other forms of dyspnea; Z29.89 Encounter for other specified prophylactic measures; E78.5 Hyperlipidemia, unspecified; I69.30 Unspecified sequelae of cerebral infarction; R42 Dizziness and giddiness; G89.29 Other chronic pain; Z88.8 Allergy status to other drugs, medicaments and biological substances; D64.9 Anemia, unspecified; R60.0 Localized edema
CPT/HCPCS: 0241U-QW; 36415; 71045-TC-FY; 80048; 80053; 82010; 82803; 82962; 83036; 83880; 84484; 85025; 85610; 85730; 93005; 93010; 93971-TC; 99285-25; G0378

== ENCOUNTER 2024-09-28 17:39 | Observation (INO) | payer OTHER ==
[2024-09-28 19:08] LABS: ABSOLUTE IMMATURE GRANULOCYTES 0.03 x10^3/uL (0.0-0.031); MONOCYTE % 5.9 % (5.3-12.2); RDW 13.6 % (12.2-16.1); VENOUS BASE EXCESS 0.2 mmol/L (-2-2); VENOUS O2 SATURATION 67.1 % (70-80); VENOUS PCO2 42.7 mmHg (38-52); VENOUS PH 7.391 (7.310-7.410)
[2024-09-28 19:10] LABS: BASOPHILS # 0.06 x10^3/uL (0.01-0.08); EOSINOPHIL % 4.3 % (0.8-7.0); EOSINOPHILS # 0.39 x10^3/uL (0.04-0.54); HEMATOCRIT 36.9 % (40.1-51.0); HEMOGLOBIN 12.4 g/dL (13.7-17.5); MCHC 33.6 g/dl (32.3-36.5); MEAN CELL VOLUME 86.4 fl (79.0-92.2); MONOCYTE # 0.54 x10^3/uL (0.30-0.82); PLATELET COUNT 244 x10^3/uL (163-337)
[2024-09-28 19:35] LABS: POTASSIUM 4.9 mmol/L (3.5-5.1)
[2024-09-28 19:38] LABS: ALBUMIN 3.3 g/dl (3.4-5.0); BLOOD UREA NITROGEN 20.3 mg/dL (7-18); CALCIUM 9.1 mg/dL (8.5-10.1); MAGNESIUM 2.3 mg/dL (1.8-2.4)
[2024-09-28 19:42] LABS: CREATININE 1.7 mg/dL (0.55-1.3)
[2024-09-28 19:43] LABS: BILIRUBIN,TOTAL 0.6 mg/dL (0.2-1); TOT PROT 7.1 g/dl (6.4-8.2)
[2024-09-28 19:47] LABS: N-TERMINAL BNP 58.3 pg/ml (5-125)
[2024-09-28] MEDS ORDERED: FUROSEMIDE 40 MG/4 ML INJECTABLE VIAL ONE (21:07)
[2024-09-28] MEDS: FUROSEMIDE 100 MG/10 ML INJECTABLE VIAL IVPB ONE (21:16)
[2024-09-28] MEDS: FUROSEMIDE 40 MG TABLET (FP) PO ONE (21:17)
[2024-09-29] MEDS ORDERED: FUROSEMIDE 40 MG/4 ML INJECTABLE VIAL IVPUSH SCH (07:00)
[2024-09-29] MEDS: ENOXAPARIN NA (PORCINE) 40 MG/0.4 ML DISP.SYRIN SQ SCH (10:00)
[2024-09-29] MEDS: FAMOTIDINE 20 MG TABLET PO SCH (10:01)
[2024-09-29] MEDS: FLUoxetine HCL 20 MG CAPSULE PO SCH (10:01)
[2024-09-29] MEDS: GABAPENTIN 300 MG CAPSULE PO SCH (10:01)
[2024-09-29] MEDS: PANTOPRAZOLE 40 MG TABLET PO SCH (10:01)
[2024-09-29] MEDS: TAMSULOSIN HCL 0.4 MG CAP PO SCH (10:01)
[2024-09-29] MEDS: CLOPIDOGREL BISULFATE 75 MG TABLET (FP) PO SCH (10:01)
[2024-09-29] MEDS: INSULIN (NOVOLOG) ASPART 100 UNITS/ML 10ML VIAL SQ SCH (11:34)
[2024-09-29] MEDS: FUROSEMIDE 40 MG/4 ML INJECTABLE VIAL IVPUSH SCH (14:24)
[2024-09-29] MEDS ORDERED: ACETAMINOPHEN 1000 MG/100 ML BAG IVPB PRN (14:50)
[2024-09-29] MEDS: FUROSEMIDE 20 MG TABLET (FP) PO ONE (16:11)
[2024-09-29] MEDS ORDERED: CycloBENZAprine HCL 5 MG TABLET PO PRN (22:00)
[2024-09-29] MEDS: ATORVASTATIN CA 40 MG TABLET (FP) PO SCH (22:18)
[2024-09-30 10:32] LABS: HEMATOCRIT 37.5 % (40.1-51.0); HEMOGLOBIN 12.3 g/dL (13.7-17.5); MCHC 32.8 g/dl (32.3-36.5); MEAN PLT VOLUME 10.2 fl (9.4-12.4); PLATELET COUNT 244 x10^3/uL (163-337); RDW 13.4 % (12.2-16.1)
[2024-09-30 10:47] LABS: POTASSIUM 4.1 mmol/L (3.5-5.1)
[2024-09-30 10:49] LABS: ALBUMIN 3.1 g/dl (3.4-5.0); MAGNESIUM 2.4 mg/dL (1.8-2.4)
[2024-09-30 10:50] LABS: BLOOD UREA NITROGEN 15.3 mg/dL (7-18)
[2024-09-30 10:53] LABS: PHOSPHOROUS 3.1 mg/dL (2.5-4.9)
[2024-09-30 10:54] LABS: BILIRUBIN,TOTAL 0.4 mg/dL (0.2-1)
[2024-09-30 10:55] LABS: CREATININE 1.5 mg/dL (0.55-1.3); TOT PROT 6.8 g/dl (6.4-8.2)
[2024-09-30 14:24] VITALS: RESP 18
[2024-09-30] MEDS: METOLAZONE 2.5 MG TABLET (FP) PO SCH (16:27)
[2024-09-30 16:51] VITALS: BMI 36.0
[2024-10-01] MEDS: METOLAZONE 2.5 MG TABLET (FP) PO SCH (06:00)
[2024-10-01 14:49] VITALS: BP 115/66; PULSE 95; TEMP 97.7
== END 2024-10-01 17:00 | disposition home health service (06) ==
LOC: JER 17:39 → JERBED 20:58 → J6S 09-29 01:36
PROVIDERS: ADMIT Internal Medicine; ATTEND Family Medicine
PROC: 3E023GC Introduction of Other Therapeutic Substance into Muscle, Percutaneous Approach (ICD-10-PCS; principal; 2024-09-28)
PROC: 3E033GC Introduction of Other Therapeutic Substance into Peripheral Vein, Percutaneous Approach (ICD-10-PCS; 2024-09-28)
PROC: 3E013VG Introduction of Insulin into Subcutaneous Tissue, Percutaneous Approach (ICD-10-PCS; 2024-09-28)
DX: I50.33 Acute on chronic diastolic (congestive) heart failure (principal); R06.02 Shortness of breath; E11.22 Type 2 diabetes mellitus with diabetic chronic kidney disease; I13.0 Hypertensive heart and chronic kidney disease with heart failure and stage 1 through stage 4 chronic kidney disease, or unspecified chronic kidney disease; N18.9 Chronic kidney disease, unspecified; E66.9 Obesity, unspecified
CPT/HCPCS: 0241U-QW; 36415; 71045-TC-FY; 80053; 82803; 82962; 83036; 83735; 83880; 84100; 84443; 84484; 85025; 85027; 93005; 93010; 93306-TC; 93970-TC; 97116-GP; 97161-GP; 99285-25; G0378

== ENCOUNTER 2025-02-09 18:08 | Inpatient (IN) | payer OTHER ==
[2025-02-09] MEDS ORDERED: ACETAMINOPHEN INJECTION 100 ML ONE (19:32)
[2025-02-09] MEDS: ACETAMINOPHEN 1000 MG/100 ML BAG IVPB ONE (21:01)
[2025-02-09 21:05] LABS: MCHC 32.8 g/dl (32.3-36.5); MEAN CELL VOLUME 88.4 fl (79.0-92.2); MEAN PLT VOLUME 9.9 fl (9.4-12.4); RDW 13.7 % (12.2-16.4)
[2025-02-09 21:40] LABS: GLUCOSE,RANDOM 166.0 mg/dL (74-106)
[2025-02-09 21:41] LABS: CO2 22.0 mmol/L (21-32); INR 1.19 (0.83-1.09); PROTHROMBIN TIME (PATIENT) 13.1 SEC (9.7-13.0); TOT PROT 7.6 g/dl (6.4-8.2)
[2025-02-09 21:43] LABS: ALK PHOS 106.0 U/L (40-150)
[2025-02-09 21:44] LABS: ACTIVATED PTT 35.4 SECONDS (25.2-36.5)
[2025-02-09 21:46] LABS: CREATININE 1.5 mg/dL (0.55-1.3); SGPT/ALT 14.0 U/L (0-55)
[2025-02-09 22:05] LABS: SGOT/AST 15.0 U/L (5-34)
[2025-02-09 22:08] LABS: HCV DIAGNOSTIC IN-HOUSE W/RFLX NON-REACTIVE (NONREACTIVE); HIV INTERPRETATION NEGATIVE (NEGATIVE)
[2025-02-09 22:10] LABS: N-TERMINAL BNP 76.0 pg/mL (0-299.9)
[2025-02-09] MEDS: SODIUM CHLORIDE 0.9% 500 ML INFUS.BAG IV ONE (23:48)
[2025-02-10 01:10] LABS: EPI CELLS 2 /uL (0-25.1); HYALINE CASTS 0 /uL (0-3.1); URINE APPEARANCE CLEAR; URINE BACTERIA 3 /uL (0-1359); URINE BILIRUBIN NEGATIVE (NEGATIVE); URINE COLOR YELLOW; URINE GLUCOSE (UA) 3+ (NEGATIVE); URINE KETONE 2+ (NEGATIVE); URINE LEUK ESTERASE NEGATIVE (NEGATIVE); URINE NITRITE NEGATIVE (NEGATIVE); URINE PROTEIN TRACE (NEGATIVE); URINE RBC 11 /uL (0-23.9); URINE UROBILINOGEN 0.2 mg/dL (0.2-1.0); URINE WBC 9 /uL (0-25.8)
[2025-02-10 01:57] LABS: MCHC 32.0 g/dl (32.3-36.5); MEAN CELL VOLUME 89.8 fl (79.0-92.2); MEAN PLT VOLUME 9.8 fl (9.4-12.4); RDW 13.7 % (12.2-16.4)
[2025-02-10] MEDS: ACETAMINOPHEN 1000 MG/100 ML BAG IVPB ONE (04:59)
[2025-02-10] MEDS ORDERED: PIPERACILLIN/TAZOB 4.5 GM 4.5 GM/100 ML BAG IVPB ONE (05:00)
[2025-02-10] MEDS ORDERED: ACETAMINOPHEN INJECTION 100 ML ONE (05:00)
[2025-02-10] MEDS: PIPERACILLIN/TAZOB 4.5 GM 4.5 GM in DEXTROSE 5%-WATER 100 ML IVPB ONE (05:09)
[2025-02-10] MEDS ORDERED: VANCOMYCIN 1 GM PREMIX (F) 1 GM/200 ML BAG ONE (05:18)
[2025-02-10] MEDS: TORSEMIDE 20 MG TABLET (FP) PO SCH (10:30)
[2025-02-10] MEDS: FOLIC ACID 1 MG TABLET (FP) PO SCH (10:30)
[2025-02-10] MEDS: CLOPIDOGREL BISULFATE 75 MG TABLET (FP) PO SCH (10:30)
[2025-02-10] MEDS: EMPAGLIFLOZIN (JARDIANCE) 10 MG TABLET PO SCH (10:30)
[2025-02-10] MEDS: TAMSULOSIN HCL 0.4 MG CAP PO SCH (10:31)
[2025-02-10 14:56] VITALS: BMI 35.2
[2025-02-10] MEDS: SENNOSIDES 8.6MG TABLET (FP) PO PRN (21:21)
[2025-02-10] MEDS: GABAPENTIN 300 MG CAPSULE PO SCH (21:22)
[2025-02-10] MEDS: ATORVASTATIN CA 40 MG TABLET (FP) PO SCH (21:22)
[2025-02-11] MEDS: PIPERACILLIN/TAZOB 3.375 GM 3.375 GM in DEXTROSE 5%-WATER - 50 ML IVPB SCH (01:56)
[2025-02-11 08:06] LABS: MCHC 32.7 g/dl (32.3-36.5); MEAN CELL VOLUME 88.7 fl (79.0-92.2); MEAN PLT VOLUME 10.2 fl (9.4-12.4); RDW 14.0 % (12.2-16.4)
[2025-02-11 08:40] LABS: GLUCOSE,RANDOM 165.0 mg/dL (74-106)
[2025-02-11 08:41] LABS: TOT PROT 6.2 g/dl (6.4-8.2)
[2025-02-11 08:42] LABS: CO2 19.0 mmol/L (21-32)
[2025-02-11 08:43] LABS: ALK PHOS 88.0 U/L (40-150)
[2025-02-11 08:46] LABS: CREATININE 1.7 mg/dL (0.55-1.3); SGOT/AST 22.0 U/L (5-34); SGPT/ALT 14.0 U/L (0-55)
[2025-02-11] MEDS: INSULIN ASPART SLIDING SCALE (NOVOLOG) 1 VIAL SQ SCH (11:54)
[2025-02-11] MEDS: VITAMIN B COMP W-C 1 EA TABLET (NEPHRO-VITE) PO SCH (14:34)
[2025-02-11] MEDS: VANCOMYCIN 1,000 MG in DEXTROSE 5%-WATER - 250 ML IVPB ONE (21:48)
[2025-02-12 14:30] VITALS: BP 151/84; PULSE 88; RESP 16; TEMP 98.6
== END 2025-02-12 15:56 | disposition home health service (06) | DRG 864 ==
LOC: JER 18:08 → JERBED 02-10 03:39 → J5S 02-10 05:47 → OBSVTOIN 02-10 14:44
PROVIDERS: ADMIT Family Medicine; ATTEND Family Medicine
DX: R50.9 Fever, unspecified (principal); I13.0 Hypertensive heart and chronic kidney disease with heart failure and stage 1 through stage 4 chronic kidney disease, or unspecified chronic kidney disease; I69.351 Hemiplegia and hemiparesis following cerebral infarction affecting right dominant side; D72.829 Elevated white blood cell count, unspecified; E78.5 Hyperlipidemia, unspecified; N40.0 Benign prostatic hyperplasia without lower urinary tract symptoms; I50.9 Heart failure, unspecified; N18.9 Chronic kidney disease, unspecified; E11.9 Type 2 diabetes mellitus without complications
CPT/HCPCS: 36415; 71045-TC-FY; 71275-TC; 74174-TC; 80053; 81003; 82962; 83036; 83605; 83690; 83735; 83880; 84484; 85025; 85027; 85610; 85730; 86803; 86850; 86900; 86901; 87040; 87086; 87389; 87637-QW; 87899; 93005; 93010; 93971-TC-RT; 97116-GP; 97162-GP; 99285-25; E0186; G0378; Q9967